=== PATIENT | male | born 1990 | race Caucasian/White ===

== ENCOUNTER 2024-07-29 10:29 | Outpatient (REF) | payer OTHER, SELFPAY ==
--- OUTSIDE RECORDS SUMMARY | 2024-07-29 10:32 | XMS_ITS | Encounter Summary ---
Author Organization [employer] Address [address] [facility] 7t [place] [address] Care Team Providers Care Black Leather Buffer Name Role Phone Abida Gonzalez MD Primary Care Provider + Reason for Visit * Reason Onset Date Comments ER Follow-up 05/26/2023 Encounter Details Date Type Department Care Team ([facility] st Contact Info) Description 05/26/2023 Telephone [facility] MEDICINE [address] [place], [place] [phone] Abida Gonzalez MD [address] [place], [place] [phone] ER Follow-up Social History Tobacco Use Types Packs/Day Years Used Date Smoking Tobacco: Never Smokeless Tobacco: Never Alcohol Use Standard Drinks/Week Comments Never 0 (1 standard drink = 0.6 oz pur e alcohol) Depression Answer Date Recorded Patient Health Questionnaire-9 Score 0 04/08/2023 Patient Health Questionnaire-9 Score 0 04/08/2023 Last PHQ-9: Questionnaire Data Not on file 1 Housing Stability Answer Date Recorded What is your housing situation today? I have jaswinder swift 04/08/[address] you li ve. Do you have problems with any of the following? None of the above 04/08/2023 Food Insecurity Answer Date Recorded Within the past 12 months, y ou worried that your food would run out before you got money to buy more: Never True 04/08/2023 Within the past 12 months,th e food you bought just didn't last and you didn't have enough money to get more: Never True Transportation Answer Date Recorded In the past 12 months, has l ack of transportation kept you from medical appts, meetings, work or from getting things needed for daily living? No 04/08/2023 Utilities Answer Date Recorded In the past 12 months, has t he electric, gas, oil or water company threatened to shut off services in your home? No 04/08/2023 Depression Answer Date Recorded Patient Health Questionnaire-2 Score 0 04/08/2023 Sex and Gender Information Value Date Recorded Sex Assigned at Male 04/22/2022 10:36 AM EDT Legal Sex Male 10:36 AM EDT Gender Identity Male 04/22/2022 10:36 AM EDT Sexual Orientation Straight 04/22/2022 10 :36 AM EDT documented as of this encounter Miscellaneous Notes * Telephone Encounter - Michell Santiago RN - 05/26/2023 9:06 AM EST Call to marc Booth seen at [facility] on Monday 05/21. Pt was having cough, chest congestion and ST. Per pt sx still persist. Per pt dx with viral URI. Pt was not given any medications. Perpt told to follow up with PCP. No fever. Per pt endorses wheezing with breathing. Per pt SOB on exertion. PT has productive cough with yellow sputum. Pt had negative COVID-19 testing. PT endorses nowhaving chest pain with cough. No fever in past 48 hours. Pt agrees to visit with green team provider for re-exam. Jackelin active per RUBIN. Sent to team nurses to request [facility] notes for provider review if available. Protocol Used: Cough (Adult) Protocol-Based Disposition: See in Office or Video Visit Today or Tomorrow Video visit offer not recorded Positive Triage Question: * Continuous (nonstop) coughing interferes with work or school and no improvement using cough treatment per Care Advice * All higher-acuity triage questions were negative Care Advice Discussed: * Reassurance and Education - Cough * Coughing Spells * Prevent Dehydration * Humidifier * Reasons To Call Back - Difficulty breathing - You become worse * Telephone Encounter - Daniel Zuniga - 05/26/2023 8:47 AM EST Patient spouse calling to report ED visit on 04/24/23 (date) at [facility] urgent care. Reports to be seen for fever, earache, chest congestion. States pt has chest pain. Patient advised will forward to triage nurse for follow up. Please contact at [phone] documented in this encounter Plan of Treatment Not on file documented as of this encounter Visit Diagnoses Not on filedocumented in this encounter Additional Health Concerns Assessment Noted Time PHQ-9 Depression Total Score: 0 04/08/20 9:36 AM EDT documented as of this encounter Care Teams Black Leather Buffer Relationship Specialty Start Date End Date Abida Gonzalez MD [address] [place] [id number] PCP - General Family Medicine 04/28/19 documented as of this encounter
--- OUTSIDE RECORDS SUMMARY | 2024-07-29 10:32 | XMS_ITS | Encounter Summary ---
Author Organization [employer] Address [address] [facility] 7t [place] [address] Care Team Providers Care Claim Attorney Name Role Phone Abida Gonzalez MD Primary Care Provider + Reason for Visit * Reason Comments Annual Exam Encounter Details Date Type Department Care Team ([facility] st Contact Info) Description 07/29/2024 9:45 AM EST Office Visit [facility] MEDICINE [address] [place], [place] [phone] Abida Gonzalez MD [address] [place], [place] [phone] Hypogonadism in male (Primary Dx); Encounter for preventive health examination; Elevated blood pressure reading in office with diagnosis of hypertension; Dietary counseling; Exercise counseling; Class 2 severe obesity due to excess calories with serious comorbidity and body mass index (BMI) of 39.0 to 39.9 in adult (CMS/HCC) Social History Tobacco Use Types Packs/Day Years Used Date Smoking Tobacco: Never Smokeless Tobacco: Never Alcohol Use Standard Drinks/Week Comments Yes 0 (1 standard drink = 0.6 oz pur e alcohol) oca Depression Answer Date Recorded Patient Health Questionnaire-9 Score 0 04/08/2023 Patient Health Questionnaire-9 Score 0 04/08/2023 Last PHQ-9: Questionnaire Data Not on file 1 Housing Stability Answer Date Recorded What is your housing situation today? I have jaswinder swift 07/29/[address] you li ve. Do you have problems with any of the following? None of the above 07/29/2024 Food Insecurity Answer Date Recorded Within the past 12 months, y ou worried that your food would run out before you got money to buy more: Never True 07/29/2024 Within the past 12 months,th e food you bought just didn't last and you didn't have enough money to get more: Never True 11/2024 Transportation Answer Date Recorded In the past 12 months, has l ack of transportation kept you from medical appts, meetings, work or from getting things needed for daily living? No 07/29/2024 Utilities Answer Date Recorded In the past 12 months, has t he electric, gas, oil or water company threatened to shut off services in your home? No 07/29/2024 Depression Answer Date Recorded Patient Health Questionnaire-2 Score 0 07/29/2024 Internet Access Answer Date Recorded Internet Access Q1 No 07/29/2024 Internet Access Q2 I do not want or need it 11/2024 Sex and Gender Information Value Date Recorded Sex Assigned at Male 04/22/2022 10:36 AM EDT Legal Sex Male 10:36 AM EDT Gender Identity Male 04/22/2022 10:36 AM EDT Sexual Orientation Straight 04/22/2022 10 :36 AM EDT documented as of this encounter Last Filed Vital Signs Vital Sign Reading Time Taken Comments Blood Pressure 161/99 07/29/2024 9:54 AM EST Pulse 73 07/29/2024 9:54 AM EST Temperature 36.7 ??C (98.1 ??F) 07/29/2024 9:54 AM ES T Respiratory Rate 16 07/29/2024 9:54 AM EST Oxygen Saturation 99% 07/29/2024 9:54 AM EST Inhaled Oxygen Concentration - - Weight 119 kg (262 lb) 07/29/2024 9:54 AM EST Height 172.7 cm (5' 8 ) 07/29/2024 9:54 AM EST Body Mass Index 39.84 07/29/2024 9:54 AM EST documented in this encounter Plan of Treatment Scheduled Orders Name Type Priority Associated Diagnoses Orde r Schedule T-SPOT??.TB Lab Routine Encounter for preventive health examination Expected: 07/29/2024 (Approximate), Expires: 07/29/2025 HIV-1/2 Antigen and Antibodies, Fourth Generation, with Reflexes Lab Routine Encounter for preventive health examination Expected: 07/29/2024 (Approximate), Expires: 07/29/2025 Hepatitis Panel, General Lab Routine Encounter for preventive health examination Expected: 07/29/2024 (Approximate), Expires: 07/29/2025 Lipid Panel with Reflex to Direct LDL Lab Routine Hypogonadism in male Expected: 07/29/2024 (Approximate), Expires: 07/29/2025 CBC auto differential Lab Routine Hypogonadism in male Expected: 07/29/2024 (Approximate), Expires: 07/29/2025 Comprehensive Metabolic Panel Lab Routine Hypogonadism in male Expected: 07/29/2024 (Approximate), Expires: 07/29/2025 Syphilis Screen Lab Routine Encounter for preventive health examination Expected: 07/29/2024 (Approximate), Expires: 07/29/2025 Chlamydia/N. Gonorrhoeae RNA, TMA, Urogenitial Microbiology Routine Encounter for preventive health examination Ordered: 07/29/2024 Testosterone, Free (Dialysis) And Total, MS Lab Routine Hypogonadism in male Expected: 07/29/2024 (Approximate), Expires: 07/29/2025 FSH Lab Routine Hypogonadism in male Expected: 07/29/2024, Expires: 07/29/2025 LH Lab Routine Hypogonadism in male Expected: 07/29/2024 (Approximate), Expires: 07/29/2025 documented as of this encounter Visit Diagnoses Diagnosis Hypogonadism in male- Primary Encounter for preventive health examination Elevated blood pressure reading in office with diagnosis of hypertension Dietary counseling Dietary surveillance and counseling Exercise counseling Class 2 severe obesity due to excess calories with serious comorbidity and body mass index (BMI) of 39.0 to 39.9 in adult (CMS/HCC) documented in this encounter Additional Health Concerns Assessment Noted Time PHQ-9 Depression Total Score: 0 04/08/20 23 9:36 AM EDT documented as of this encounter Care Teams Claim Attorney Relationship Specialty Start Date End Date Abida Gonzalez MD [address] [place] [id number] PCP - General Family Medicine 04/28/19 documented as of this encounter
--- OUTSIDE RECORDS SUMMARY | 2024-07-29 10:32 | XMS_ITS | Encounter Summary ---
Author Organization [employer] Address [address] [place] [address] Care Team Providers Care Outsole Rounder Name Role Phone Abida Gonzalez MD Primary Care Provider + [phone] Reason for Visit * Reason Comments Follow-up Discuss treatment op tions Encounter Details Date Type Department Care Team ([facility] st Contact Info) Description 07/08/2024 8:30 AM EST Office Visit Orthopedic Surgery [facility] [address] [phone] Rosa Wagoner MD [address] [facility] 160 [place] [address] Patellar tendon strain, left, sequela (Primary Dx) Social History Tobacco Use Types Packs/Day Years Used Date Smoking Tobacco: Never Alcohol Use Standard Drinks/Week Comments Yes 0 (1 standard drink = 0.6 oz pur e alcohol) Sex and Gender Information Value Date Recorded Sex Assigned at Not on file Gender Identity Not on file Sexual Orientation Not on file Job Start Date Occupation Industry Not on file Not on file Not on file documented as of this encounter Last Filed Vital Signs Vital Sign Reading Time Taken Comments Blood Pressure - - Pulse - - Temperature - - Respiratory Rate - - Oxygen Saturation - - Inhaled Oxygen Concentration - - Weight 119 kg (263 lb) 07/08/2024 8:27 AM EST Height 172.7 cm (5' 7.99 ) 07/08/2024 8:27 AM ES T Body Mass Index 40 07/08/2024 8:27 AM EST documented in this encounter Progress Notes * Rosa Wagoner MD - 07/08/2024 8:30 AM EST Daniel Cosme CC: Chief Complaint Patient presents with Follow-up Discuss treatment options HPI: Daniel is here to follow-up with his left knee pain secondary to patella tendinosis with partial thickness tear. We had heard from his Worker's [employer]. insurance that the PRP injection was going miguel approved but unfortunately they change their mind and they are not going to approve the PRP injection. Unfortunately Daniel has not improved with any other conservative treatment including extensive physical therapy. He states at this time he is not able to afford [id number] cost of PRP injection which is $500. He wonders if there are other treatment options for this condition. ROS: Constitutional: no fever Musculoskeletal: see HPI Skin: no rash Neurologic: negative for headache, dizziness The remainder of the systems is noncontributory PMH: Patient Active Problem List Diagnosis Date Noted BRBPR (bright red blood per rectum) 04/14/2024 Known medical problems 04/06/2024 Hypogonadism in male 04/08/2023 Elevated blood pressure reading in office with diagnosis of hypertension 04/08/2023 Class 2 obesity 11/06/2022 PSH: Past Surgical History: Procedure Laterality Date ROTATOR CUFF REPAIR PROCEDURE: HISTORICAL ROTATOR CUFF REPAIR; COMMENT: right side Medications: No current outpatient medications on file. Allergies: Allergies Allergen Reactions Other Seasonal allergies SHx: Social History Tobacco Use Smoking status: Never Smokeless tobacco: Not on file Substance Use Topics Alcohol use: Yes FHx: Family History Problem Relation Name Age of Onset Diabetes Maternal Grandfather Physical Exam: Visit Vitals Ht 1.727 m (67.99 ) Wt 119 kg (263 lb) BMI 40.00 kg/m?? Smoking Status Never BSA 2.29 m?? Gen: No acute distress. Pleasant Eyes: PERRL, EOMI ENT: Mucous membranes moist Resp:Normal respiratory effort Lymphatics: No noted lymphadenopathy MSK: Knee Exam: Left Inspection: No genu varus or valgus noted. No effusion. Normal gait. . Palpations: No joint line tenderness to palpation. Patella facets - pos tenderness to palpation. MCL: nl. LCL: nl. Distal ITB: nl. Patella tendon: Ttp at proximal attachment . Pes Anserine: tendons: nl, bursa: nl. Strength: 5/5. ROM-full. Varus stress at 20 degree and full extension - nl. Valgus stress at at 20 degree and fullextension - n Neurovascular: Intact with no focal deficit Radiographic/Imaging: MRI of the left knee was personally reviewed Medial, lateral meniscus are both intact. ACL, PCL, MCL and LCL complex are all intact. There is bone marrow edema at the inferior pole of the patella. The adjacent patella tendon appearsthickened and irregular with increased signal intensity. Limited bedside musculoskeletal ultrasound of the patella tendon was then performed. See ultrasoundreport for those results All images are stored and permanently retrievable Assessment: 1) Left patella tendinosis with partial thickness tear: Unfortunately he has not responded to several months of physical therapy for patellar tendinosis and partial-thickness tearing. I discussed corticosteroid injection is generally not recommended. This may help reduce his pain but it will not help heal his tendon tear or his tendinosis and does increase his risk of patella tendon rupture. I again discussed the best options for treatment as he has already exhausted other conservative treatments is a PRP injection versus consultation for surgical treatment. Plan: 1) at this time he is not able to afford [id number] cost of PRP injection and Worker's Comp. didnot approve the cost. 2) discussed referral to Dr. Marcelo Sanders to discuss possible surgical treatment for patella tendinosis and partial-thickness tear. 3) paperwork was filled out for his job at the [employer] recommending definitive treatment with PRP injection versus surgical evaluation. All of the patient's questions were answered. The patient understand and feels comfortable with thecurrent care plan. Thanks for allowing me to be a part of the patient's care team! Please feel free to contact me for any reason. Sincerely, Rosa Wagoner MD. ON 07/09/2024 at 1:22 PM EST documented in this encounter Plan of Treatment Upcoming Encounters Date Type Department Care Team (Late st Contact Info) Description 08/09/2024 9:00 AM EST Consult Orthopedic Surgery - [facility] [address] [facility] [address] [place] [phone] Marcelo Sanders MD 175 [facility] 160 [place] [address] documented as of this encounter Visit Diagnoses Diagnosis Patellar tendon strain, left, sequela- Primary documented in this encounter Care Teams Outsole Rounder Relationship Specialty Start Date End Date Abida Gonzalez MD 230 [facility] 1 [place] [phone] PCP - General Internal Medicine 05/24/24 documented as of this encounter
--- OUTSIDE RECORDS SUMMARY | 2024-07-29 10:32 | XMS_ITS | Clinical Summary ---
Author Organization [facility] [address] [place] [address] Address [address] [place] [address] Phone Care Team Providers Care Air And Water Filler Name Role Phone Abida Gonzalez MD Primary Care Provider + [phone] Allergies Active Allergy Reactions Criticality Noted Date Comments Other 12/11/2012 Seasonal allergies Medications No known medications Active Problems Problem Noted Date Diagnosed Date BRBPR (bright red blood per rectum) 04/14/2024 Known medical problems 04/06/2024 Overview (04/06/2024): NO ACTIVE MEDICAL PROBLEMS(aka [id number]) Hypogonadism in male 04/08/2023 Overview (07/08/2024): Dx and treated by Dr Khurram Canela ([place] and [place]), only telehealth Elevated blood pressure read ing in office with diagnosis of hypertension 04/08/2023 Class 2 obesity 11/06/2022 Resolved Problems Problem Noted Date Diagnosed Date Resolved Date Subareolar mass of right breast 11/06/2022 07/08/2024 Right upper quadrant pain 11/06/2022 Pleuritic pain 11/06/2022 07/08/2024 Injury of right foot 11/06/2022 025 Encounters Date Type Department Care Team Description 07/08/2024 8:30 AM EST Office Visit Orthopedic Surgery - [facility] 160 175 [facility] [address] [place] [address] Rosa Wagoner MD Patellar tendon strain, left, sequela (Primary Dx) 06/02/2024 Telephone Orthopedic Surgery [facility] [address] [phone] [place] 05/31/2024 3:40 PM EST Ancillary Procedure Orthopedic [facility] 160 175 [facility] 160 [place] [phone] Injury of left knee, subsequent encounter 05/31/2024 3:00 PM EST Office Visit Orthopedic Surgery [facility] [address] [phone] Rosa Wagoner MD Injury of left knee, subsequent encounter 05/07/2024 9:00 AM EST Office Visit [address] [phone] Miguel Ángel Diane PA Injury of left knee, subsequent encounter (Primary Dx) from Last 3 Months Immunizations Name Administration Dates Next Due Influenza Quadrivalent, 0.5m l, preservative free (Fluarix; FluLaval; Fluzone) ages 6mo and older (Afluria) 3yo and older 04/05/2020 Moderna SARS-CoV-2 COVID-19, mRNA, LNP-S, preservative free 06/06/2021 Td Tetanus diptheria (Tdvax) 7yo and older 04/08 Tdap Tetanus diptheria acell ular pertussis (Boostrix; Adacel) 7yo and older 02/17/2017,02/18/2013 Surgical History Surgery Date Site/Laterality Comments ROTATOR CUFF REPAIR PROCEDURE: HISTORICAL ROTATOR CUFF REPAIR; COMMENT: right side Medical History Medical History Date Comments Fracture, radius and ulna, shaft DX:Fracture, radius and ulna, shaft; COMMENT: 2007 Injury of right foot 11/06/2022 Subareolar mass of right breast 11/06/2022 Right upper quadrant pain 11/06/2022 Family History Medical History Relation Name Comments Diabetes Maternal Grandfather Relation Name Status Comments Brother Alive Father Alive Maternal Grandfather Mother Alive Social History Tobacco Use Types Packs/Day Years Used Date Smoking Tobacco: Never Tobacco Cessation:Counseling Given: Not Answered Alcohol Use Standard Drinks/Week Comments Yes 0 (1 standard drink = 0.6 oz pur e alcohol) Sex and Gender Information Value Date Recorded Sex Assigned at Not on file Gender Identity Not on file Sexual Orientation Not on file Job Start Date Occupation Industry Not on file Not on file Not on file Obstetrics History Last Filed Vital Signs Vital Sign Reading Time Taken Comments Blood Pressure 136/86 04/08/2024 3:16 PM EDT Pulse 70 04/08/2024 3:16 PM EDT Temperature - - Respiratory Rate - - Oxygen Saturation - - Inhaled Oxygen Concentration - - Weight 119 kg (263 lb) 07/08/2024 8:27 AM EST Height 172.7 cm (5' 7.99 ) 07/08/2024 8:27 AM ES T Body Mass Index 40 07/08/2024 8:27 AM EST Plan of Treatment Upcoming Encounters Date Type Department Care Team (Late st Contact Info) Description 08/09/2024 9:00 AM EST Consult Orthopedic Surgery - [facility] 160 175 [facility] [address] [place] [phone] Marcelo Sanders MD 175 [facility] 160 [place] [address] Health Maintenance Due Date Last Done Comments Hepatitis B Vaccines (1 of 3 - 19+ 3-dose series) 2009 COVID-19 Vaccine (3 - Modern a risk series) 08/10/2021 07/13/2021, 06/06/2021 Social Influencers of Health Screening 05/26/2022 Influenza Vaccine (#1) 2024 04/05/2020 Depression Screening 04/08/2024 04/08/2023 Hypertension/CHF/CAD Annual BMP Blood Test 05/07/2024 02/22/2014 Cholesterol Screening (Lipid Panel) 04/10/2025 04/10/2020, 02/22/2014 DTaP,Tdap,and Td Vaccines (4 - Td or Tdap) 04/08/2033 04/08/2023, 02/17/2017, 02/18/2013 Hepatitis C Screening Completed 02/18/2013 HIV Screening Completed 04/10/2020, 02/18/2013 HIB Vaccines Aged Out No longer eligi ble based on patient's age to complete this topic HPV Vaccines Aged Out No longer eligi ble based on patient's age to complete this topic Hepatitis A Vaccines Aged Out No long er eligible based on patient's age to complete this topic IPV Vaccines Aged Out No longer eligi ble based on patient's age to complete this topic MMR Vaccines Aged Out No longer eligi ble based on patient's age to complete this topic Meningococcal ACWY Vaccine Aged Out N o longer eligible based on patient's age to complete this topic Pneumococcal Vaccine: Pediatrics (0 to 5 Years) and At-Risk Patients (6 to 64 Years) Aged Out No longer eligible b ased on patient's age to complete this topic RSV Immunization Patients Under 20 months Aged Out No longer eligible b ased on patient's age to complete this topic Varicella Vaccines Aged Out No longer eligible based on patient's age to complete this topic Procedures Procedure Name Priority Date/Time Associated Diagnosis Comments US EXTREMITY NONVASCULAR LIMITED LEFT Routine 05/31/2024 3:36 PM EST Injury of left knee, subsequent encounter ANNUAL BMP BLOOD TEST Routine 02/22/2014 LIPID PANEL Routine 02/22/2014 HEPATITIS C SCREENING Routine 02/18/2013 HIV SCREENING Routine 02/18/2013 from Last 3 Months or Most Recently Relevant to Health Maintenance Results * US Extremity Nonvascular Limited Left (05/31/2024 3:36 PM EST) Anatomical Region Laterality Modality Extremity Left Ultrasound Narrative 05/31/2024 5:24 PM EST MSK Ultrasound Exam Anatomical site: Left knee Indication: Pain Technical: [employer] E ultrasound machine used a linear probe at a depth of 3 cm. Findings: The left anterior knee was imaged in short and long axis. At the proximal portion of the patella tendon at the lateral aspect there is thickening of the patella tendon and hypoechoic signal at the attachment point at the lateral portion of the patella. ??There is hyperechoic signal at the attachment point of the distal pole of the patella Impression: Patella tendinosis with partial thickness tearing at the lateral aspect of the tendon with underlying bony abnormality at the distal pole of the patella Images were taken and are permanently stored and retrievable in the patient's medical record Rosa Wagoner MD IMG US PROCEDURES * Annual BMP Blood Test (02/22/2014) Annual BMP Blood Test abstracted Historical Provider MD ALLEGRA GRECO E * Lipid panel (02/22/2014) Pathologist [facility] LDL/HDL Ratio 3 0 - 4 Triglycerides 95 0 - 150 mg/dL Cholesterol 153 0 - 200 mg/dL HDL 44 40 mg/dL LDL Cholesterol 90 0 - 100 mg/dL Blood Venous blood specimen / Unknown Historical Provider LAB BLOOD ORDERAB LES * HIV Screening (02/18/2013) Pathologist [facility] HIV Screening abstracted Historical Provider MD ALLEGRA GRECO * Hepatitis C Screening (02/18/2013) Pathologist [facility] Hepatitis C Screening abstracted Historical Provider MD ALLEGRA Clark from Last 3 Months or Most Recently Relevant to Health Maintenance Care Teams Air And Water Filler Relationship Specialty Start Date End Date Abida Gonzalez MD [address] [place] [phone] PCP - General Internal Medicine 05/24/24
--- OUTSIDE RECORDS SUMMARY | 2024-07-29 10:32 | XMS_ITS | Encounter Summary ---
Author Organization [employer] Address [address] [facility] [address] [place] [address] Care Team Providers Care Broomcorn Scraper Name Role Phone Abida Gonzalez MD Primary Care Provider + Encounter Details Date Type Department Care Team (Latest Contact Info) Description 07/29/2024 Travel Social History Tobacco Use Types Packs/Day Years [...] AM EDT documented as of this encounter Plan of Treatment Not on file documented as of this encounter Visit Diagnoses Not on filedocumented in this encounter Additional Health Concerns Assessment Noted Time PHQ-9 Depression Total Score: 0 04/08/20 23 9:36 AM EDT documented as of this encounter Care Teams Broomcorn Scraper Relationship Specialty Start Date End Date Abida Gonzalez MD [address] [place] [id number] PCP - General Family Medicine 04/28/19 documented as of this encounter
--- OUTSIDE RECORDS SUMMARY | 2024-07-29 10:32 | XMS_ITS | Clinical Summary ---
Author Organization [facility] Address [address] [place] [address] Care Team Providers Care Warehouse Handler Name Role Phone Unavailable Primary Care Provider Unavailabl e Allergies No known active allergies Medications Medication Sig Dispensed Refills Start Date End Date Status ibuprofen 200 MG tablet Take 200 mg by mouth every 6 (six) hours as needed for pain. 0 Active Social History Tobacco Use Types Packs/Day Years Used Date Smoking Tobacco: Never Assessed Sex and Gender Information Value Date Recorded Sex Assigned at Not on file Gender Identity Not on file Sexual Orientation Not on file Job Start Date Occupation Industry Not on file Not on file Not on file Last Filed Vital Signs Vital Sign Reading Time Taken Comments Blood Pressure - - Pulse - - Temperature - - Respiratory Rate - - Oxygen Saturation - - Inhaled Oxygen Concentration - - Weight 103.9 kg (229 lb) 06/07/2021 8:27 AM EST Height 172.7 cm (5' 8 ) 06/07/2021 8:27 AM EST Body Mass Index 34.82 06/07/2021 8:27 AM EST Plan of Treatment Health Maintenance Due Date Last Done Comments Hepatitis B Vaccines (1 of 3 - 3-dose series) 1990 Hepatitis C Screening 1990 COVID-19 Vaccine (#1) 05/12/1991 Depression Screening 2002 BMI Counseling 2008 Preventative Health Evaluation 2008 DTap / Tdap / Td (1 - Tdap) 2009 Influenza Vaccine (#1) 2024 Pneumococcal Vaccine Aged Out No long er eligible based on patient's age to complete this topic RSV Ped < 20 months Aged Out No longe r eligible based on patient's age to complete this topic [employer] Corporate Other [address] [id number] Daniel Cosme Personal/Family Self 1990 [address] [place] [address]
--- OUTSIDE RECORDS SUMMARY | 2024-07-29 10:32 | XMS_ITS | Encounter Summary ---
Author Organization [employer] Address [address] [facility] [address] [place] [address] Care Team Providers Care Landscape Architecture Teacher Name Role Phone Abida Gonzalez MD Primary Care Provider + Reason for Visit * Reason Onset Date Comments Chart prep 07/28/2024 Encounter Details Date Type Department Care Team ([facility] st Contact Info) Description 07/28/2024 Telephone [facility] MEDICINE [address] [place], [place] [phone] Abida Gonzalez MD [address] [place], [place] [phone] Chart prep Social History Tobacco Use Types Packs/Day Years [...] your housing situation today? I have jaswinder jamison 07/29/[address] you li [...] encounter Miscellaneous Notes * Telephone Encounter - Gilda Benitez MA - 07/28/2024 11:00 AM EST Chart Prep Labs: not done Images: done Vaccines due: yes Referrals: complete Screenings: Up to date Overdue care gaps: SDOH, PHQ-9 documented in this encounter Plan of Treatment Not on file documented as of this encounter Visit Diagnoses Not on filedocumented in this encounter Additional Health Concerns Assessment Noted Time PHQ-9 Depression Total Score: 0 04/08/20 23 9:36 AM EDT documented as of this encounter Care Teams Landscape Architecture Teacher Relationship Specialty Start Date End Date Abida Gonzalez MD [address] [place] [address] PCP - General Family Medicine 04/28/19 documented as of this encounter
--- OUTSIDE RECORDS SUMMARY | 2024-07-29 10:32 | XMS_ITS | Encounter Summary ---
Author Organization [employer] Address [address] [facility] 7t [place] [address] Care Team Providers Care Tube Bender Hand Name Role Phone Abida Gonzalez MD Primary Care Provider + Reason for Visit * Reason Comments Pre-visit Planning (Unable to reach for PVP screening, LVM) Encounter Details Date Type Department Care Team ([facility] Contact Info) Description 07/19/2024 Patient Outreach [facility] MEDICINE [address] [place], [place] [phone] Abida Gonzaelz MD [address] [place], [place] [phone] Pre-visit Planning ((Unable to reach for PVP screening, LVM)) Social History Tobacco Use Types Packs/Day Years [...] AM EDT documented as of this encounter Progress Notes * Rachelle Kim - 07/19/2024 10:30 AM EST WILLIAM Bush. Placed outbound call to patient to complete pre-visit planning. No answer at this time. Patient name and were not confirmed. CC left voicemail requesting return call. Direct contact information provided. documented in this encounter Plan of Treatment Not on file documented as of this encounter Visit Diagnoses Not on filedocumented in this encounter Additional Health Concerns Assessment Noted Time PHQ-9 Depression Total Score: 0 04/08/20 23 9:36 AM EDT documented as of this encounter Care Teams Tube Bender Hand Relationship Specialty Start Date End Date Abida Gonzalez MD [address] [place] [address] PCP - General Family Medicine 04/28/19 documented as of this encounter
--- OUTSIDE RECORDS SUMMARY | 2024-07-29 10:32 | XMS_ITS | Encounter Summary ---
Author Organization [employer] Address [address] [place] [address] Care Team Providers Care Smoke Jumper Supervisor Name Role Phone Abida Gonzalez MD Primary Care Provider + [phone] Encounter Details Date Type Department Care Team ([facility] st Contact Info) Description 06/02/2024 Telephone Orthopedic Surgery [facility] [address] [facility] [address] [place] [phone] Mervat Perez MA Social History Tobacco Use Types Packs/Day Years [...] on file documented as of this encounter Progress Notes * Mervat Perez MA - 07/05/2024 8:27 AM EST Patient was informed, appt scheduled for 07/08/24 at 8;30am. * Rosa Wagoner MD - 07/02/2024 3:38 PM EST I would recommend he schedule a followup apt to discuss options * Mervat Perez MA - 07/02/2024 2:38 PM EST I called Daniel and he stated that at this time he is not able to afford to pay out of pocket and heknows that will not pay or reimburse him. Wondering if he can do the cortisone injection you recommended. * Rosa Wagoner MD - 07/01/2024 8:09 AM EST I would recommend if he can afford to pay the $500 out of pocket and then work with his workers comp high speed warper tender to get reimbursed that would be the best option. * Mervat Perez MA - 06/30/2024 9:56 AM EST Patient called back today and stated that he reached out to his HR dept and they will not be covering PRP injection. Is there something else that you would recommend? * Mervat Perez MA - 06/29/2024 9:43 AM EST I called patient to find out if he could reach out to his workers comp case planner as we have not received letter stating fee coverage. He stated that he will reach out to his HR dept. * Mervat Perez MA - 06/09/2024 1:11 PM EST L/m again for Mary re: payment letter. L/m for pt to call office. Pt returned my phone call, informed that PRP has been approved and right now we are waiting on payment letter from Mary. * Mervat Perez MA - 06/04/2024 2:41 PM EST Correspondence received stating that PRP injection has been approved. Dr. Wagoner was informed of approval. Message left for Mary that the office will need a letter stating that Future comp will be responsible for payment. This letter will be needed before appt is scheduled. Fee: $500.00 I did call Mary back and left fee information on her voice mail. * Mervat Perez MA - 06/03/2024 2:52 PM EST Request faxed to Mary. * Mansi Hanson - 06/03/2024 1:02 PM EST Mary called back and said to fax the PA request and she would take a look * Mervat Perez MA - 06/02/2024 3:05 PM EST L/m on Mary's voice mail to call me back. * Mervat Perez MA - 06/02/2024 9:56 AM EST Patient called me back and provided information Case managing case: Mary Martínez Claim# [id number] Future comp. * Mervat Perez MA - 06/02/2024 9:48 AM EST Left message to call office. I will need workers comp personal service representative name, phone and fax #s and workers comp account number to start PA process for PRP injection. documented in this encounter Plan of Treatment Upcoming Encounters Date Type Department Care Team (Late st Contact Info) Description 08/09/2024 9:00 AM EST Consult Orthopedic Surgery - [place] [address] [facility] [address] [place] [phone] Marcelo Sanders MD 175 [facility] [address] [place] [address] documented as of this encounter Visit Diagnoses Not on filedocumented in this encounter Care Teams Smoke Jumper Supervisor Relationship Specialty Start Date End Date Abida Gonzalez MD 230 [facility] 1 [place] [address] PCP - General Internal Medicine 05/24/24 documented as of this encounter
--- OUTSIDE RECORDS SUMMARY | 2024-07-29 10:32 | XMS_ITS | Clinical Summary ---
Author Organization [employer] Address [address] [facility] 7[address] [place] [address] Care Team Providers Care Lozenge Dough Mixer Name Role Phone Abida Gonzalez MD Primary Care Provider + Allergies No known active allergies Medications sucralfate (Carafate) 1 g tablet TAKE 1 TABLET (ORAL) 4 TIMES PER DAY FOR 14 DAYS 02/23/20 23 Active loratadine (Claritin) 10 MG tablet Take 1 tablet (10 mg) by mouth in the morning. 30 tablet 2 05/26/20 23 Active Blood Pressure Monitoring (Blood Pressure Kit) kit 1Use as directed 3x/week 1 kit 07/29/19 25 Active tretinoin (Retin-A) 0.025 % cream APPLY TO FACE EVERY OTHER NIGHT AND INCREASE TO NIGHTLY TOLERATED 01/15/20 23 025 Discontinued(Th erapy completed) minocycline 100 MG capsule PLEASE SEE ATTACHED FOR DETAILED DIRECTIONS 01/15/20 23 025 Discontinued(Th erapy completed) Blood Pressure Monitor kit Use as directed 3x/week 1 kit 04/08/20 23 025 Discontinued(Re order (will not trigger notification to Pharmacy)) Blood Pressure Monitoring (Blood Pressure Kit) kit 1Use as directed 3x/week 1 kit 07/29/19 25 025 Discontinued(Re order (will not trigger notification to Pharmacy)) Active Problems Problem Noted Date Diagnosed Date Hypogonadism in male 04/08/2023 Overview (04/08/2023): Dx and treated by Dr Khurram Canela ([place]), only telehealth Assessment & Plan (04/08/2023 1:02 PM EDT): Unclear Dx, will obtain records from who is a neuro surgeon based out of [place] Check testosterone levels Elevated blood pressure read ing in office with diagnosis of hypertension 04/08/2023 Assessment & Plan (04/08/2023 1:03 PM EDT): Controlled. Compliant w/meds Counseled re low salt diet/increase moderate physical activity. Check home BP 2-3 x wk and prn CP/DOE/MOREIRA Non smoking patient. Check labs, unclear if related to testosterone injections Family history of colon cancer 03/03/2023 Encounter for preventive health examination 10/21 Assessment & Plan (04/08/2023 1:04 PM EDT): Discussed with patient re increase fresh fruit and vegetable intake. Counseled re moderate exercise as tolerated, up to 20min/d Patient feels safe at home. 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 Refer to Urology and scheduled him a PE with me at next available appointment. Injury of right foot 11/06/2022 Subareolar mass of right breast 11/06/2022 Right upper quadrant pain 11/06/2022 Obesity (BMI 30-39.9) 11/06/2022 Pleuritic pain 11/06/2022 Encounters Date Type Department Care Team Description 07/29/2024 9:45 AM EST Office Visit [facility] [address] [place] [address] Abida Gonzalez MD Hypogonadism in male (Primary Dx); Encounter for preventive health examination; Elevated blood pressure reading in office with diagnosis of hypertension; Dietary counseling; Exercise counseling; Class 2 severe obesity due to excess calories with serious comorbidity and body mass index (BMI) of 39.0 to 39.9 in adult ([facility]) 07/29/2024 Travel 07/28/2024 Telephone [facility] MEDICINE [address] [place] [address] Abida Gonzalez MD Chart prep 07/19/2024 Patient Outreach [address] [phone] Abida Gonzalez MD Pre-visit Planning ((Unable to reach for PVP screening, LVM)) 06/18/[address] [phone] Abida Gonzalez MD Call Back Request 05/10/[address] [phone] Abida Gonzalez MD June recall from Last 3 Months Immunizations Name Administration Dates Next Due Influenza injectable quadrivalent preservative f ree 04/05/2020 TD (adult), 2 Lf tetanus tox oid, preservative free, adsorbed 04/08/2023 Family History Medical History Relation Name Comments Cancer Maternal Grandfather prostat e or colon ca, pt clarifying Colon cancer Maternal Grandmother Cancer Mother possible colon ca, pt clarifying w/ mom Cervical cancer Other maternal gre at aunt Relation Name Status Comments Maternal Grandfather Maternal Grandmother Mother Other Social History Tobacco Use Types Packs/Day Years [...] Orientation Straight 04/22/2022 10 :36 AM EDT Last Filed Vital Signs Vital Sign Reading [...] Mass Index 39.84 07/29/2024 9:54 AM EST Plan of Treatment Health Maintenance Due Date Last Done Comments Alcohol/Substance Use Screening 2002 Family Planning (PISQ) 2005 Hepatitis B Vaccines (1 of - 19+ 3-dose series) 2009 COVID-19 Vaccine (2023-2 5 season) 2024 07/13/2021, 06/06/2021 Influenza Vaccine (#1) 2024 04/05/2020 Lipid Panel 04/10/2025 04/10/2020 Depression Screening 07/29/2025 07/29/2024, 04/08/2023 SDOH Screening 07/29/2025 07/29/2024 Tobacco Screening 07/29/2025 07/29/2024 DTaP/Tdap/Td Vaccines (4 - T d or Tdap) 04/08/2033 04/08/2023, 02/17/2017, 02/18/2013 Zoster Vaccines (1 of 2) 2040 RSV Patients and Patients Aged 60 years or older (1 - 1-dose 75+ series) 2065 HIV Screening Completed 04/10/2020 Hepatitis C Screening Completed 04/10/2020 HIB Vaccines Aged Out No longer eligi [...] patient's age to complete this topic Meningococcal Vaccine Aged Out No malik edelmira eligible based on patient's age to complete this topic Pneumococcal Vaccine: Pediatrics (0 to 5 Years) and At-Risk Patients (6 to 49) Years) Aged Out No longer eligible b ased on patient's age to complete this topic RSV under 20 months Aged Out No longe r eligible based on patient's age to complete this topic Rotavirus Vaccines Aged Out No longer eligible based on patient's age to complete this topic Procedures Procedure Name Priority Date/Time Associated Diagnosis Comments ZZZ HISTORICAL HEPATITIS C AB W/REFL TO HCV RNA, QN, PCR Routine 04/10/2020 4:06 PM EDT HIV 1/2 ANTIGEN/ANTIBODY, FOURTH GENERATION W/RFL Routine 04/10/2020 4:06 PM EDT LIPID PANEL, STANDARD Routine 04/10/2020 4:06 PM EDT from Last 3 Months or Most Recently Relevant to Health Maintenance Results * HEPATITIS C AB W/REFL TO HCV RNA, QN, PCR (04/10/2020 4:06 PM EDT) HEPATITIS C ANTIBODY NON-REACT MIRANDA NON-REACT MIRANDA [facility] INDEX 0.02 <1.00 [facility] Comment: ?? HCV antibody was non-reactive. There is no laboratory ?? evidence of HCV infection. ?? In most cases, no further action is required. However, if recent HCV exposure is suspected, a test for HCV RNA (test code 87741) is suggested. ?? For additional information please refer to http://Qyuki/faq/DPX59a0 (This link is being provided for informational/ educational purposes only.) ?? HEPATITIS C ANTIBODY NON-REACT MIRANDA NON-REACT MIRANDA [facility] INDEX 0.02 <1.00 [facility] Comment: ?? HCV antibody was non-reactive. There is no laboratory ?? evidence of HCV infection. ?? In most cases, no further action is required. However, if recent HCV exposure is suspected, a test for HCV RNA (test code 75657) is suggested. ?? For additional information please refer to http://Qyuki/faq/SCK67t6 (This link is being provided for informational/ educational purposes only.) ?? HEPATITIS C ANTIBODY NON-REACT MIRANDA NON-REACT MIRANDA [facility] INDEX 0.02 <1.00 [facility] Comment: ?? HCV antibody was non-reactive. There is no laboratory ?? evidence of HCV infection. ?? In most cases, no further action is required. However, if recent HCV exposure is suspected, a test for HCV RNA (test code 68622) is suggested. ?? For additional information please refer to http://Qyuki/faq/QDD99t3 (This link is being provided for informational/ educational purposes only.) ?? 04/10/2020 4:06 PM EDT Abida Gonzalez MD HISTORICAL/NON ORDERABLE LABS Final Result [facility] [address] * HIV 1/2 ANTIGEN/ANTIBODY,FOURTH GENERATION W/RFL (04/10/2020 4:06 PM EDT) HIV-1/2 ANTIGEN AND ANTIBODIES, 4TH GENERATION W/ REFLEX NON-REACT MIRANDA NON-REACT MIRANDA [facility] Comment: HIV-1 antigen and HIV-1/HIV-2 antibodies were not detected. There is no laboratory evidence of HIV infection. ?? PLEASE NOTE: This information has been disclosed to you from records whose confidentiality may be protected by state law. ??If your state requires such protection, then the state law prohibits you from making any further disclosure of the information without the specific written consent of the person to whom it pertains, or as otherwise permitted by law. A general authorization for the release of medical or other information is NOT sufficient for this purpose. ? For additional information please refer to http://[employer]darTech[employer]/faq/FWU131 (This link is being provided for informational/ educational purposes only.) ? The performance of this assay has not been clinically validated in patients less than 2 years old. ?? HIV-1/2 ANTIGEN AND ANTIBODIES, 4TH GENERATION W/ REFLEX NON-REACT MIRANDA NON-REACT M[facility] Comment: HIV-1 antigen and HIV-1/HIV-2 antibodies were not detected. There is no laboratory evidence of HIV infection. ?? PLEASE NOTE: This information has been disclosed to you from records whose confidentiality may be protected by state law. ??If your state requires such protection, then the state law prohibits you from making any further disclosure of the information without the specific written consent of the person to whom it pertains, or as otherwise permitted by law. A general authorization for the release of medical or other information is NOT sufficient for this purpose. ? For additional information please refer to http://[employer]/faq/TAB743 (This link is being provided for informational/ educational purposes only.) ? The performance of this assay has not been clinically validated in patients less than 2 years old. ?? HIV-1/2 ANTIGEN AND ANTIBODIES, 4TH GENERATION W/ REFLEX NON-REACT MIRANDA NON-REACT [facility] Comment: HIV-1 antigen and HIV-1/HIV-2 antibodies were not detected. There is no laboratory evidence of HIV infection. ?? PLEASE NOTE: This information has been disclosed to you from records whose confidentiality may be protected by state law. ??If your state requires such protection, then the state law prohibits you from making any further disclosure of the information without the specific written consent of the person to whom it pertains, or as otherwise permitted by law. A general authorization for the release of medical or other information is NOT sufficient for this purpose. ? For additional information please refer to http://[employer]/faq/JJW404 (This link is being provided for informational/ educational purposes only.) ? The performance of this assay has not been clinically validated in patients less than 2 years old. ?? 04/10/2020 4:06 PM EDT us Abida Gonzalez MD LAB BLOOD ORDERABLES Fin al Result [facility] [address] * LIPID PANEL, STANDARD (04/10/2020 4:06 PM EDT) HDL Cholesterol 51 > OR = 40 mg/dL [facility] HDL Cholesterol 51 > OR = 40 mg/dL [facility] Triglycerides 79 <150 mg/dL [facility] LDL Cholesterol 97 mg/dL (calc) [facility] Comment: Reference range: <100 ?? Desirable range <100 mg/dL for primary prevention; ?? <70 mg/dL for patients with CHD or diabetic patients ?? with > or = 2 CHD risk factors. ?? LDL-C is now calculated using the Derek ?? calculation, which is a validated novel method providing ?? better accuracy than the Friedewald equation in the ?? estimation of LDL-C. ?? Shakeel JERONIMO et al. BEKA. 2013;310(19): 1573-7792 ?? (http://[employer]Tech.CmyCasa.[place]a/faq/ENF692) Chol/HDLC Ratio 3.2 <5.0 (calc) [facility] Triglycerides 79 <150 mg/dL [facility] Non-HDL Cholesterol 114 <130 mg/dL (calc) [facility] Comment: For patients with diabetes plus 1 major ASCVD risk ?? factor, treating to a non-HDL-C goal of <100 mg/dL ?? (LDL-C of <70 mg/dL) is considered a therapeutic ?? option. LDL Cholesterol 97 mg/dL (calc) [facility] Comment: Reference range: <100 ?? Desirable range <100 mg/dL for primary prevention; ?? <70 mg/dL for patients with CHD or diabetic patients ?? with > or = 2 CHD risk factors. ?? LDL-C is now calculated using the Derek ?? calculation, which is a validated novel method providing ?? better accuracy than the Friedewald equation in the ?? estimation of LDL-C. ?? Shakeel JERONIMO et al. BEKA. 2013;310(19): 0471-4173 ?? (http://LeddarTech.DCWafers/faq/NKZ981) Chol/HDLC Ratio 3.2 <5.0 (calc) [facility] Non-HDL Cholesterol 114 <130 mg/dL (calc) [facility] Comment: For patients with diabetes plus 1 major ASCVD risk ?? factor, treating to a non-HDL-C goal of <100 mg/dL ?? (LDL-C of <70 mg/dL) is considered a therapeutic ?? option. Cholesterol, Total 165 <200 mg/dL [facility] Cholesterol, Total 165 <200 mg/dL [facility] 04/10/2020 4:06 PM EDT us Abida Gonzalez MD LAB BLOOD ORDERABLES Fin al Result [facility] [address] from Last 3 Months or Most Recently Relevant to Health Maintenance [place] [address] [place] [address] Care Teams Lozenge Dough Mixer Relationship Specialty Start Date End Date Abida Gonzalez MD [address] [place] [id number] PCP - General Family Medicine 04/28/19
[2024-07-29 11:17] LABS: MANUAL DIFF FLAG NO
[2024-07-29 11:21] LABS: Basophils Absolute Auto 0.1 X10*3/uL (0.0-0.2); Basophils Percent Auto 1.1 % (0-2); Eosinophils Absolute Auto 0.3 X10*3/uL (0.0-0.4); Eosinophils Percent Auto 5.3 % (0-4); Hematocrit 44.6 % (42.0-52.0); Imm Gran Abs Auto 0.02 X10*3/uL (0.00-0.03); Imm Gran Pct Auto 0.3 % (0.0-0.4); Lymphocytes Absolute Auto 2.1 X10*3/uL (1.2-4.9); Lymphocytes Percent Auto 32.5 % (20-40); Mean Corpuscular HGB Conc 33.6 g/dl (31.0-36.0); Mean Corpuscular Volume 86.1 fL (80.0-98.0); Monocytes Absolute Auto 0.4 X10*3/uL (0.1-1.2); Monocytes Percent Auto 6.4 % (2-11); Neutrophils Absolute Auto 3.5 x10*3/uL (2.0-8.3); Neutrophils Percent Auto 54.4 % (45-73); Platelet Count 250 X10*3/uL (160-400); Red Blood Count 5.18 X10*6/uL (4.60-5.80); Red Cell Distribution Width 13.2 % (11.0-16.0); White Blood Count 6.4 X10*3/uL (4.8-10.8)
[2024-07-29 11:42] LABS: Alanine Aminotransferase 27 U/L (0-40); Albumin Level 4.1 g/dL (3.5-5.0); Alkaline Phosphatase 95 U/L (39-117); Anion Gap 10 (12-20); Aspartate Amino Transferase 20 U/L (5-37); Bilirubin Total 0.8 mg/dL (0.0-1.0); Blood Urea Nitrogen 20 mg/dL (9-16); Calcium 9.6 mg/dL (8.4-10.2); Carbon Dioxide 22 mmol/L (22-29); Chloride 109 mmol/L (96-108); Cholesterol 185 mg/dL (<200); Estimated Glomerular Filt Rate > 60; Glucose Random 105 mg/dL (60-115); HDL Cholesterol 44 mg/dL (>40); LDL Cholesterol Calculated 123 mg/dL (<100); Potassium 3.9 mmol/L (3.3-5.1); Sodium 137 mmol/L (135-145); Total Protein 8.5 g/dL (6.5-8.0); Triglycerides 91 mg/dL (<150)
[2024-07-29 11:44] LABS: Reflex LDLD? No
[2024-07-29 11:50] LABS: Syphilis Screen Nonreactive (Nonreactive)
[2024-07-29 11:59] LABS: HBS Num1 11.06 mIU/mL (0-7.99); HBc Num1 0.16 S/CO (0.00-0.79); HBsAGNum1 0.33 S/CO (0.00-0.99); HIV AB/AG Nonreactive (Nonreactive); HIV Num 1 0.06 S/CO (0.00-0.99); Hepatitis A Antibody IgM 0.13 Index (0-0.79); Hepatitis B Core Antibody Nonreactive (Nonreactive); Hepatitis B Surface Antigen Negative (Negative); ~HepC Num1 0.23 S/CO (0.00-0.79); ~Hepatitis A Antibody IgM Nonreactive (Nonreactive); ~Hepatitis C Antibody Nonreactive (Nonreactive)
[2024-07-29 12:50] LABS: HBS Num2 11.15 mIU/mL (0-7.99); ~Hepatitis B Surface Antibody GRAYZONE (Nonreactive)
[2024-07-30 20:14] LABS: Follicle Stimulating Hormone 3.8 mIU/mL (1.4-12.8); Lutenizing Hormone 1.9 mIU/mL (1.5-9.3)
[2024-07-31 22:08] LABS: TS Negative Control Passed; TS Panel A 3; TS Panel B 0; TS Positive Control Passed; TSpotTB Negative (Negative)
[2024-08-06 13:37] LABS: Testosterone, Free 34.2 pg/mL (35.0-155.0); Testosterone, Total 189 ng/dL (250-1100)
== END 2024-07-29 10:30 | disposition home or self-care (01) ==
LOC: HO.HHCL 10:29
PROVIDERS: Visit Provider Internal Medicine
DX: Z00.00 Encounter for general adult medical examination without abnormal findings (principal); E29.1 Testicular hypofunction; Z11.1 Encounter for screening for respiratory tuberculosis; Z11.59 Encounter for screening for other viral diseases
CPT/HCPCS: 36415; 80053; 80061; 83001; 83002; 84402; 84403; 85025; 86481; 86704; 86706; 86709; 86780; 86803; 87340; 87389

== ENCOUNTER 2024-09-07 09:50 | Outpatient (AMB) | payer OTHER, SELFPAY ==
--- NOTE | 2024-09-07 09:55 | A.OFFVIS_ITS ---
Vital Signs 09/07/24 09:58 Height 5 ft 8 in Weight 270 lb 8.115 oz BMI 41.1 BP 124/84 Blood Pressure Location Rt brachial Position Sitting Pulse 77 Pulse Source Pulse Oximeter Pulse Oximetry (%) 97 Oxygen Delivery Method Room Air Intake Visit Reasons: Hypogonadism Intake Note: New patient externally referred by PCP for Hypogonadism. Media Technician Required: No Accompanied by: Self / Same As Patient Allergies No Known Allergies Allergy (Verified 09/07/24 09:58) Medication List - Last Reconciled 09/07/24 by Price Chaney MD No Known Home Meds HPI Comments Details: 33 YO Male with who is seen in consultation at the request of his PCP for Hypogonadism. First diagnosed with Hypogonadism in 2021 with labs revealing low T. Saw online help. Took 100 mg once a wk.[place] better . Previously diagnosed in 2021, he reported fatigue, potentially exacerbated by night shifts. Initial treatment via [facility] consisted of weekly testosterone injections, 100 mg, resulting in symptom improvement. Cost led to therapy cessation approximately one year ago. Since stopping treatment, there has been weight gain, and a decrease in libido. He denies erectile dysfunction and testicular changes, and overall maintains intact sexual function. He experiences snoring but has not pursued sleep apnea evaluation. Was started on Testosterone supplementation with as above and found relief. Not Currently using testosterone. Last dose was last yr . achieving spontaneous am erections, and unable to achieve erection when desired. Reports low libido. Decreased facial hair and shaving frequency. Denies any change in size or shape of testicles. Denies penile discharge or scrotal tenderness. Denies any history of mumps orchitis. Denies any head trauma. Admits to snoring Denies history of ANAID. with children 4 children who were conceived spontaneously. Not looking to father children Sense of smell intact. Denies headache or visual changes, gynecomastia or galactorrhea. Denies orthostatic symptoms, weight loss. Denies change in size of hands or feet. Denies hair loss, weight gain, cold intolerance. History of DVT or PE: No use of anabolic steroids or heroin or opoids Labs: T=189 freeT =39.2 FSH =3.8 , LH =1.9 PSA CBC [facility] Medical History (Updated 09/07/24 @ 10:05 by Price Chaney MD) Hypogonadotropic hypogonadism Surgical History Hx of shoulder surgery Hx of vasectomy Family History Mother History of partial hysterectomy Social History Alcohol intake: current Alcohol intake frequency: holidays/special occasions only Patient Tobacco Use Status: Never used Tobacco Physical Exam Vital Signs: BMI result Body Mass Index 41.1 There is the absence of eunichoidal proportions. Neck exam reveals nl thyroid about 15 gms. Chest exam reveals absence of gynecomastia. Lungs CTA. Heart is S1 S2 Reg R/R. -M/R/G. Abdominal exam is benign. Muscle strength is 5/5 proximally. Examination of genitalia reveals nl size pthalus . Testes are of nl size and consistency. There is Dino Stage V Hair development Assessment & Plan Assessment & Plan (1) Hypogonadotropic hypogonadism: Code(s): E23.0 - Hypopituitarism Category: Medical Plan: Is a 33-year-old male with a history of hypogonadism with inappropriately low gonadotropins suggesting secondary hypogonadism. 1. Hypogonadism: Further evaluation for cause is warranted given low FSH and LH levels indicating possible central origins. Additional testing including prolactin and ferritin, and a pituitary MRI is planned. Options for testosterone replacement to be discussed include injections, gels, or new oral forms, targeting patient's circumstances, costs, and response. 2. Snoring/Possible Sleep Apnea: Discuss referral for sleep apnea workup due to significant snoring which may affect treatment. Proposed a sleep study via primary provider to assess apnea and ensure safe androgen therapy administration. The patient had an opportunity to ask questions regarding treatment plan. The patient expressed understanding and agreement with the above treatment plan. T Patient was informed and verbally consented to the use of an ambient scribe for clinic note documentation during this visit. During this visit, I explained to the patient the importance of thoroughly evaluating his hypogonadism, its possible central etiology, and the appropriate diagnostic pathway, including hormonal studies and pituitary imaging. The risks of unaddressed causes and improper management were discussed, emphasizing that central causes require specific treatment strategies and potentially overlooked symptoms can indicate serious conditions. We delved into the implications of untreated sleep apnea on testosterone therapy, which necessitates a preliminary evaluation and potential in-depth studies if apnea is present. The patient was counseled on the various testosterone delivery methods, tailored to his personal and family dynamics and cost considerations. I highlighted the need for informed decision-making about therapy in the context of precise and complete diagnosis. - Schedule and complete fasting morning blood work including testosterone, prolactin, and ferritin. - Follow up with MRI of the pituitary gland as scheduled. - Contact your primary care provider to arrange a sleep study assessment for potential sleep apnea. - Monitor for any new symptoms or escalate any current symptoms, especially if they change in character or severity. - Return for follow-up at the next scheduled appointment to review test results and establish a definitive treatment plan. Orders: Orders Testosterone, Free/Total Today E23.0 - Hypopituitarism Ferritin Today E23.0 - Hypopituitarism Thyroid Stimulating Hormone Today E23.0 - Hypopituitarism Free T4 (Free Thyroxine) Today E23.0 - Hypopituitarism Prolactin Today E23.0 - Hypopituitarism MR head/brain wo/w con Today E23.0 - Hypopituitarism Coding Level of Care Code New Pt Level 4 (37947) Diagnoses Hypogonadotropic hypogonadism E23.0
[2024-09-07 09:58] VITALS: BP 124/84; PULSE 77; O2SAT 97; BMI 41.1
--- OUTSIDE RECORDS SUMMARY | 2024-09-07 10:58 | XMS_ITS | Clinical Summary ---
Author Organization [employer] Address [address] [facility] [address] [place] [address] Care Team Providers Care Health Informatics Specialist Name Role Phone Abida Gonzalez MD Primary Care Provider + Allergies No known active allergies Medications sucralfate (Carafate) 1 g tablet TAKE 1 TABLET (ORAL) 4 TIMES PER DAY FOR 14 DAYS 02/22/2023 Active loratadine (Claritin) 10 MG tablet Take 1 tablet (10 mg) by mouth in the morning. 30 tablet 2 05/26/2023 Active Blood Pressure Monitoring (Blood Pressure Kit) kit 1Use as directed 3x/week 1 kit 07/29/2024 Active Active Problems Problem Noted Date Diagnosed Date Class 2 severe obesity due t o excess calories with serious comorbidity and body mass index (BMI) of 39.0 to 39.9 in adult 07/29/2024 Assessment & Plan (07/29/2024 11:05 AM EST): Discussed re weight reduction options including exercise, life style modifications, diet. Recommended to decrease soda and sugary beverage consumption, increase protein intake with meals (at least 1 portion of protein with each meal) to assist with satiety, increase dietary fiber Recommended at least 150 min/week of moderate intensity exercise. Refer to hand stripper, will consider medications. Screening and evaluation for vasectomy Assessment & Plan (07/29/2024 2:37 PM EST): Patient never had vasectomy that he was referred to few years ago as he couldn't afford copayment. He will bring me information re specialist he would like to be referred to. Hypogonadism in male 04/08/2023 Overview (04/08/2023): Dx and treated by Dr Khurram Canela ([place] and [place]), only telehealth Assessment & Plan (07/29/2024 11:02 AM EST): Pt has been off Testosterone for more than a year, needs to check Testosterone and FSH levels. Will FU at next appointment. Assessment & Plan (04/08/2023 1:02 PM EDT): Unclear Dx, will obtain records from who is a neuro surgeon based out of [place] Check testosterone levels Elevated blood pressure read ing in office with diagnosis of hypertension 04/08/2023 Assessment & Plan (07/29/2024 11:03 AM EST): Counseled re low salt diet/increase moderate physical activity. Check home BP BIW and prn CP/DOE/MOREIRA Non smoking patient. FU with me in 4 weeks with labs. Assessment & Plan (04/08/2023 1:03 PM EDT): Controlled. Compliant w/meds Counseled re low salt diet/increase moderate physical activity. Check home BP 2-3 x wk and prn CP/DOE/MOREIRA Non smoking patient. Check labs, unclear if related to testosterone injections Family history of colon cancer 03/03/2023 Encounter for preventive health examination 10/21 Assessment & Plan (07/29/2024 11:07 AM EST): Discussed with patient re increase fresh fruit and vegetable intake. Counseled re moderate exercise as tolerated, up to 20min/d Patient feels safe at home. Eye exam: overdue, pt advised to schedule apt at his Ophthalmology office. Lipids/FBS: overdue, to be ordered. Vaccinations: pt declined Covid and Influenza vaccinations. Dental visit: utd, next one due in August 2024. Assessment & Plan (04/08/2023 1:04 PM EDT): Discussed with patient re increase fresh fruit and vegetable intake. Counseled re moderate exercise as tolerated, up to 20min/d Patient feels safe at home. 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 Lipids/FBS, labs to be ordered Vaccinations, agreed [...] Encounters Date Type Department Care Team Description 09/07/2024 Travel 08/06/[address] [address] Abida Gonzalez MD Results 08/06/2024 Orders Only [address] [address] Abida Gonzalez MD Hypogonadism in male (Primary Dx) 08/03/[address] NUTRITION APPT REQUEST 07/29/2024 9:45 AM EST Office Visit [address] [address] Abida Gonzalez MD Hypogonadism in male (Primary Dx); Encounter for preventive health examination; Class 2 severe obesity due to excess calories with serious comorbidity and body mass index (BMI) of 39.0 to 39.9 in adult (CMS/HCC); Elevated blood pressure reading in office with diagnosis of hypertension; Screening and evaluation for vasectomy; Dietary counseling; Exercise counseling 07/29/2024 Travel 07/28/[address] [address] Abida Gonzalez MD Chart prep 07/19/2024 Patient Outreach [facility] [address] [place] [address] Abida Gonzalez MD Pre-visit Planning ((Unable to reach for PVP screening, LVM)) 06/18/2024 Telephone [facility] [address] [place] [address] Abida Gonzalez MD Call Back Request from Last 3 Months Immunizations Name Administration [...] 07/29/2024 9:54 AM EST Plan of Treatment Upcoming Encounters Date Type Department Care Team (Late st Contact Info) Description 09/14/2024 12:00 PM EDT Telemedicine [facility] [address] [place] [address] Abida Gonzalez MD [address] [place] [address] Health Maintenance Due Date Last Done Comments Alcohol/Substance Use Screening 2002 Hepatitis B Vaccines (1 of 3 - 19+ 3-dose series) 2009 COVID-19 Vaccine (2023-2 5 season) 2024 07/13/2021, 06/06/2021 Influenza Vaccine (#1) 2024 04/05/2020 Depression Screening 07/29/2025 07/29/2024, 04/08/2023 Family Planning (PISQ) 07/29/2025 07/29/2024 SDOH Screening 07/29/2025 07/29/2024 Tobacco Screening 07/29/2025 07/29/2024 Lipid Panel 07/29/2029 07/29/2024, 04/10/2020 DTaP/Tdap/Td Vaccines (4 - T d or Tdap) 04/08/2033 04/08/2023, 02/17/2017, 02/18/2013 Zoster Vaccines (1 of 2) 2040 RSV Patients and Patients Aged 60 years or older (1 - 1-dose 75+ series) 2065 HIV Screening Completed 07/29/2024, 04/10/2020 Hepatitis C Screening Completed 07/29/2024 , 04/10/2020 HIB Vaccines Aged Out No longer [...] Procedure Name Priority Date/Time Associated Diagnosis Comments LH Routine 07/29/2024 10:32 AM EST Hypogonadism in male FSH Routine 07/29/2024 10:32 AM EST Hypogonadism in male TESTOSTERONE, FREE (DIALYSIS) AND TOTAL,MS Routine 07/29/2024 10:32 AM EST Hypogonadism in male SYPHILIS SCREEN Routine 07/29/2024 10:32 AM EST Encounter for preventive health examination COMPREHENSIVE METABOLIC PANEL Routine 07/29/2024 10:32 AM EST Hypogonadism in male CBC WITH AUTO DIFFERENTIAL Routine 07/29/2024 10:32 AM EST Hypogonadism in male LIPID PANEL WITH REFLEX TO DIRECT LDL Routine 07/29/2024 10:32 AM EST Hypogonadism in male HEPATITIS PANEL, GENERAL Routine 07/29/2024 10:32 AM EST Encounter for preventive health examination HIV 1/2 ANTIGEN/ANTIBODY, FOURTH GENERATION W/RFL Routine 07/29/2024 10:32 AM EST Encounter for preventive health examination T-SPOT(R).TB Routine 07/29/2024 10:32 AM EST Encounter for preventive health examination from Last 3 Months Results * Syphilis Screen (07/29/2024 10:32 AM EST) Syphilis Screen Nonreactive Nonreactive [facility] Blood 07/29/2024 10:3 2 AM EST 07/29/2024 11:12 AM EST us Abida Gonzalez MD LAB BLOOD ORDERABLES Fin al Result [facility] [address] [place] [phone] * T-SPOT??.TB (07/29/2024 10:32 AM EST) T Spot TB Negative Negative [facility] Comment:A negative test resu lt does not exclude the possibilityof exposure to or infection with Mycobacteriumtuberculosis (M. tuberculosis). Patients with recentexposure to TB infected individuals exhibiting anegative T-SPOT.TB result should be considered forretesting within 6 weeks or if other relevant clinicalsymptoms indicate. Results from T-SPOT.TB testing mustbe used in conjunction with each individual'sepidemiological history, current medical status,and results of other diagnostic evaluations.The T-SPOT.TB test is qualitative and results arereported as positive, borderline, or negative, giventhat the test controls perform as expected. In linewith the Centers for Disease Control and Prevention's2010 recommendation to report quantitative measurementsalongside the qualitative result, the laboratoryprovides spot counts for informational purposes only.The T-SPOT.TB test should not be interpreted as aquantitative test. TS PANEL A 3 [facility] TS PANEL B 0 [facility] Negative Control Passed [facility] Positive Control Passed [facility] Comment:For additional infor richie, please refer tohttp://education.Partnerpedia/faq/XQY429(This link is being provided for informational/educational purposes only.)THIS TEST WAS PERFORMED AT:[email or web address] [id number] [place] [address]SXIZCIBXENA AMIN MD,PHD 07/29/2024 10:3 2 AM EST 07/29/2024 11:12 AM EST us Abida Gonzalez MD LAB BLOOD ORDERABLES Fin al Result [facility] [address] [place] [phone] * (ABNORMAL) Lipid Panel with Reflex to Direct LDL (07/29/2024 10:32 AM EST) Triglycerides 91 <150 mg/dL [facility] Comment:Desirable Triglyceri de: less than 150 mg/dLBorderline High Triglyceride 150-199 mg/dLHigh Triglyceride: 200-499 mg/dLVery High Triglyceride: greater than or equal to 5OO mg/dL Cholesterol 185 <200 mg/dL [facility] Comment:Desirable Cholestero l: less than 200 mg/dLBorderline High Cholesterol: 200-239 mg/dLHigh Cholesterol: greater than 239 mg/dL LDL Cholesterol Calculated 123(H) <100 mg/dL [facility] Comment:Desirable LDL: less than 100 mg/dLNear Optimal/Above Optimal LDL: 110- 129 mg/dLBorderline High LDL: 130-159 mg/dLHigh LDL: 160-189 mg/dLVery High LDL: greater than or equal to 190 mg/dL HDL Cholesterol 44 >40 mg/dL [facility] Comment:Desirable HDL: great er than 40 mg/dL Note: This HDL assay may give artificially low results in patients with liver disease. Blood 07/29/2024 10:3 2 AM EST 07/29/2024 11:12 AM EST Abida Gonzalez MD LAB BLOOD ORDERABLES Fin al Result Performing Organization Address [facility] de Phone Number [facility] [address] [place] [phone] * Hepatitis Panel, General (07/29/2024 10:32 AM EST) Pathologist [facility] Hepatitis A IgM Nonreactive Nonreactive [facility] Comment:IgM antibodies to DOE V not detected; does not exclude earlyacute or recovered HAV infection. ~Hepatitis B Surface Antibody GRAYZONE Nonreactive [facility] Comment:GRAYZONE: 8.00 mIU/m L TO 11.99 mIU/mLTHE IMMUNE STATUS OF THE INDIVIDUAL SHOULD BE FURTHERASSESSED BY CONSIDERING OTHER FACTORS, SUCH CLINICALSTATUS, FOLLOW-UP TESTING, ASSOCIATED RISK FACTORS, AND THEUSE OF ADDITIONAL DIAGNOSTIC INFORMATION. Hepatitis B Core Antibody Nonreactive Nonreactive [facility] Hepatitis C Antibody Nonreactive Nonreactive [facility] Comment:Antibodies to HCV no t detected; does not exclude early acuteHCV infection. Hepatitis B Surface Ag Negative Negative [facility] Blood 07/29/2024 10:3 2 AM EST 07/29/2024 11:12 AM EST Abida Gonzalez MD LAB BLOOD ORDERABLES Fin al Result Performing Organization Address [facility] de Phone Number [facility] [address] [place] [phone] * (ABNORMAL) CBC auto differential (07/29/2024 10:32 AM EST) Pathologist [facility] White Blood Count 6.4 4.8 - 10.8 X10*3/uL [facility] Red Blood Count 5.18 4.60 - 5.80 X10*6/uL [facility] Hemoglobin 15.0 14.0 - 18.0 g/dl [facility] Hematocrit 44.6 42.0 - 52.0 % [facility] Mean Corpuscular Volume 86.1 80.0 - 98.0 fL [facility] Mean Corpuscular Hemoglobin 29.0 27.0 - 33.0 pg [facility] Mean Corpuscular HGB Conc 33.6 31.0 - 36.0 g/dl [facility] Red Cell Distribution Width 13.2 11.0 - 16.0 % [facility] Platelet Count 250 160 - 400 X10*3/uL [facility] Mean Platelet Volume 11.0 9.4 - 12.4 fL [facility] Neutrophils Percent Auto 54.4 45 - 73 % [facility] Imm Gran Pct Auto 0.3 0.0 - 0.4 % [facility] Lymphocytes Percent Auto 32.5 20 - 40 % [facility] Monocytes Percent Auto 6.4 2 - 11 % [facility] Eosinophils Percent Auto 5.3(H) 0 - 4 % [facility] Basophils Percent Auto 1.1 0 - 2 % [facility] NRBC Pct Auto 0.0 0.0 - 0.2 /100WBC [facility] Neutrophils Absolute Auto 3.5 2.0 - 8.3 x10*3/uL [facility] Imm Gran Abs Auto 0.02 0.00 - 0.03 X10*3/uL [facility] Lymphocytes Absolute Auto 2.1 1.2 - 4.9 X10*3/uL [facility] Monocytes Absolute Auto 0.4 0.1 - 1.2 X10*3/uL [facility] Eosinophils Absolute Auto 0.3 0.0 - 0.4 X10*3/uL [facility] Basophils Absolute Auto 0.1 0.0 - 0.2 X10*3/uL [facility] NRBC Abs Auto 0.000 0.0 - 0.012 X10*3/uL [facility] Blood Venous blood specimen / Unknown 07/29/2024 10:32 AM EST 07/29/2024 11:12 AM EST Abida Gonzalez MD LAB BLOOD ORDERABLES Fin al Result Performing Organization Address City/[facility]/ZIP Co de Phone Number [facility] [address] [place] [phone] * HIV-1/2 Antigen and Antibodies, Fourth Generation, with Reflexes (07/29/2024 10:32 AM EST) HIV AB/AG Nonreactive Nonreactive [facility] Comment:HIV-1 p24 Ag and/or HIV-1/HIV-2 Ab not detected.A test result that is nonreactive does not exclude thepossibility of exposure to or infection with HIV-1 and/orHIV-2. Nonreactive results in this assay for individualswith prior exposure to HIV-1 and/or HIV-2 may be due toantigen and antibody levels that are below the limit ofdetection of this assay.The [employer] HIV Ag/Ab Combo assay result andsupplemental assay results should be interpreted inconjunction with the patient's clinical presentation,history and other laboratory results. If the results areinconsistent with clinical evidence, additional testing issuggested to confirm the result. Blood Venous blood specimen / Unknown 07/29/2024 10:32 AM EST 07/29/2024 11:12 AM EST Abida Gonzalez MD LAB BLOOD ORDERABLES Fin al Result Performing Organization Address City/[facility]/ZIP Co de Phone Number [facility] [address] [place] [phone] * (ABNORMAL) Testosterone, Free (Dialysis) And Total, MS (07/29/2024 10:32 AM EST) Testosterone, Total 189(A) 250 - 1100 ng/dL [facility] Comment:For additional infor mation, please refer tohttp://education.[employer].Judicata/faq/IltivYchpibrbnyvwBXJUUJBHH622(This link is being provided for informational/educational purposes only.)This test was developed and its analytical performancecharacteristics have been determined by [employer], [place]. It hasnot been cleared or approved by the U.S. Food and DrugAdministration. This assay has been validated pursuantto the CLIA regulations and is used for clinicalpurposes. Testosterone, Free 34.2(A) 35.0 - 155.0 pg/mL [facility] Comment:This test was develo ped and its analytical performancecharacteristics have been determined by [employer], [place]. It hasnot been cleared or approved by the U.S. Food and DrugAdministration. This assay has been validated pursuantto the CLIA regulations and is used for clinicalpurposes.THIS TEST WAS PERFORMED AT:[email or web address] [place] [address]QIKTAUWXENA AMIN MD,PHD Blood Venous blood specimen / Unknown 07/29/2024 10:32 AM EST 07/29/2024 11:12 AM EST Abida Gonzalez MD LAB BLOOD ORDERABLES Fin al Result [facility] [address] [place] [phone] * LH (07/29/2024 10:32 AM EST) Lutenizing Hormone 1.9 1.5 - 9.3 mIU/mL [facility] Comment:THIS TEST WAS PERFOR MED AT:[email or web address] [address] [address]BYYNYOTILIO RICHARDS MD Blood Venous blood specimen / Unknown 07/29/2024 10:32 AM EST 07/29/2024 11:12 AM EST us Abida Gonzalez MD LAB BLOOD ORDERABLES Fin al Result Performing Organization Address [facility] Co de Phone Number [facility] [address] [place] [phone] * FSH (07/29/2024 10:32 AM EST) Follicle Stimulating Hormone 3.8 1.4 - 12.8 mIU/mL [facility] Comment:THIS TEST WAS PERFOR MED AT:[employer] [place] [phone] RICHARDS MD Blood Venous blood specimen / Unknown 07/29/2024 10:32 AM EST 07/29/2024 11:12 AM EST Abida Gonzalez MD LAB BLOOD ORDERABLES Fin al Result Performing Organization Address [facility] de Phone Number [facility] [address] [place] [phone] * (ABNORMAL) Comprehensive Metabolic Panel (07/29/2024 10:32 AM EST) Sodium 137 135 - 145 mmol/L [facility] Potassium 3.9 3.3 - 5.1 mmol/L [facility] Chloride 109(H) 96 - 108 mmol/L [facility] Carbon Dioxide 22 22 - 29 mmol/L [facility] Anion Gap 10(L) 12 - 20 [facility] Urea Nitrogen (BUN) 20(H) 9 - 16 mg/dL [facility] Creatinine, Serum 0.96 0.5 - 1.4 mg/dL [facility] Estimated Glomerular Filt Rate >60 [facility] Comment:Chronic Kidney Disea se: Estimated GFR < 60 mL/min/1.60p1Awdgzz Kidney Disease: Estimated GFR < 15 mL/min/1.73m2 Glucose 105 60 - 115 mg/dL [facility] Calcium 9.6 8.4 - 10.2 mg/dL [facility] Bilirubin, Total 0.8 0.0 - 1.0 mg/dL [facility] Aspartate Amino Transferase 20 5 - 37 U/L [facility] Alanine Aminotransferase 27 0 - 40 U/L [facility] Total Protein 8.5(H) 6.5 - 8.0 g/dL [facility] Albumin Level 4.1 3.5 - 5.0 g/dL [facility] Alkaline Phosphatase 95 39 - 117 U/L [facility] Blood Venous blood specimen / Unknown 07/29/2024 10:32 AM EST 07/29/2024 11:12 AM EST Abida Gonzalez MD LAB BLOOD ORDERABLES Fin al Result [facility] [address] [place] [phone] from Last 3 Months Insurance [employer] Care Teams Health Informatics Specialist Relationship Specialty Start Date End Date Abida Gonzalez MD [address] [place] [phone] PCP - General Family Medicine 04/28/19
--- OUTSIDE RECORDS SUMMARY | 2024-09-07 10:58 | XMS_ITS | Encounter Summary ---
Author Organization [employer] Address [address] [place] [address] Care Team Providers Care [employer] Name Role Phone Abida Gonzalez MD Primary Care Provider + [phone] Reason for Visit * Reason Onset Date Comments Surgery 08/24/2024 Encounter Details Date Type Department Care Team (Late st Contact Info) Description 08/24/2024 Telephone Orthopedic Surgery [facility] [phone] [phone] Nicole Ly MA Surgery Social History Tobacco Use Types Packs/Day Years Used Date Smoking Tobacco: Never Alcohol Use Standard Drinks/Week Comments Yes 0 (1 standard drink = 0.6 oz pur e alcohol) Sex and Gender Information Value Date Recorded Sex Assigned at Not on file Legal Sex Male 8:26 AM EST Gender Identity Not on file Sexual Orientation Not on file documented as of this encounter Progress Notes * Nicole Ly MA - 08/24/2024 12:01 PM EST Hello- Patient is wanting to proceed with surgery, can you enter case please. Nicole Andrade documented in this encounter Plan of Treatment Upcoming Encounters Date Type Department Care Team (Latest Contact Info) Description 09/23/2024 1:00 PM EDT Hospital Encounter [facility] [address] [place] [phone] Marcelo Sanders MD [address] [address] 09/23/2024 1:00 PM EDT - 09/23/2024 4:00 PM EDT Surgery [facility] [place] [address] [place] [phone] Marcelo Sanders MD [address] [address] ARTHROTOMY LEFT KNEE 10/11/2024 11:45 AM EDT Office Visit Orth[facility] [place] [address] [phone] Marcelo Sanders MD [address] [phone] Scheduled Procedures Name Priority Associated Diagnoses Date/Ti me ARTHROTOMY KNEE Patellar tendon rupture, left, sequela 09/23/2024 1:00 PM EDT REPAIR LIGAMENT OR TENDON KNEE Patellar tendon rupture, left, sequela 09/23/2024 1:00 PM EDT documented as of this encounter Visit Diagnoses Not on filedocumented in this encounter Care Teams [employer] Relationship Specialty Start Date End Date Abida Gonzalez MD [address] [place] [phone] PCP - General Internal Medicine 05/24/24 documented as of this encounter
--- OUTSIDE RECORDS SUMMARY | 2024-09-07 10:58 | XMS_ITS | Encounter Summary ---
Author Organization [employer] Address [address] [place] [address] Care Team Providers Care Silk Hanger Name Role Phone Abida Gonzalez MD Primary Care Provider + [phone] Reason for Visit * Reason Comments Pain Encounter Details Date Type Department Care Team ([facility] st Contact Info) Description 08/09/2024 9:00 AM EST Consult Orthopedic Surgery - [place] [address] [address] Marcelo Sanders MD [address] [address] Patellar tendon rupture, left, sequela (Primary Dx) Social History Tobacco [...] - Inhaled Oxygen Concentration - - Weight 121 kg (267 lb) 08/09/2024 9:08 AM EST Height 172.7 cm (5' 7.99 ) 08/09/2024 9:08 AM ES T Body Mass Index 40.61 08/09/2024 9:08 AM EST documented in this encounter Progress Notes * Marcelo Sanders MD - 08/09/2024 9:00 AM EST Reason For Visit: Pain of the Left Knee Patient: Daniel Cosme : 1990 VISIT DATE: 08/09/2024 HPI: Daniel Cosme is a 33 y.o. year old male who presents follow up on his left knee. Original injury tohis knee was in December 2023. 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 He underwent physical therapy from January until April including a work conditioning protocol. Continues to have significant tenderness and pain and limitation of function. MRI confirms insertional partial tearing at the inferior pole of the patella. ROS: GENERAL: negative MUSCULOSKELETAL: See HPI The remainder of the review of systems is noncontributory Allergies: Allergies Allergen Reactions Other Seasonal allergies Past Medical History: has a past medical history of Fracture, radius and ulna, shaft, Injury of right foot (11/06/2022), Right upper quadrant pain (11/06/2022), and Subareolar mass of right breast (11/06/2022). Social History: Social History Tobacco Use Smoking status: Never Smokeless tobacco: Not on file Substance Use Topics Alcohol use: Yes Past Surgeries: Past Surgical History: Procedure Laterality Date ROTATOR CUFF REPAIR PROCEDURE: HISTORICAL ROTATOR CUFF REPAIR; COMMENT: right side Medications: No outpatient medications have been marked as taking for the 08/09/24 encounter (Consult) with Marcelo Sanders MD. Physical Exam: Vitals: 08/09/24 0908 Weight: 121 kg (267 lb) Height: 1.727 m (67.99 ) APPEARANCE: Alert, oriented, no acute distress LEFTKNEE KNEE EXAM: LEFT Inspection: Normal appearing knee Palpation: Significant tenderness at the inferior pole just lateral to midline of the insertional aspect of the patella tendon. No other tenderness ROM: Active full range of motion Passive range of motion Neurovascular: No gross deficits distally Strength: Normal quadriceps and hamstring strength. Significant pain to resisted knee extension at the partial tear site. Special Tests: Ligamentously stable. No obvious meniscal findings. Imaging: No imaging today. Assessment and Plan: 1. Patellar tendon rupture, left, sequela He has a partial patellar tendon tear refractory to conservative treatment. He has undergone several months of activity modification and physical therapy. Has not worked since this incident in December 2023. He was offered PRP but this was declined by insurance. At this point, my recommendation would be to address this surgically. He is anxious to get back to work. Explained surgery, risks, benefits and alternatives. He would like to proceed. PLANNED PROCEDURE: LEFT KNEE Arthroscopy, open patellar tendon repair I reviewed my findings and plan with the patient today. We went over the nature of the upcoming surgery as well as the anticipated recovery time. Informed consent was obtained today. The patient clearly understands the information presented and is capable of making decisions voluntarily. They demonstrated a clear understanding of the problem and the risks and benefits of treatment. The discussion included a description of the proposed treatment, including the purpose, duration, methods and implements used, as well as the probability of success. We discussed all material risks of the procedure, as well as the possibility of unforeseen or unanticipated risks. The material risks include, but are not limited to infection, bleeding, injury to blood vessels and/or nerves, scarring, stiffness, no change in symptoms, need for further surgery, blood clots, stroke, and . The discussion further included reasonable alternatives and the risks of not being treated. Postoperative pain medications were reviewed, and side effects discussed. We confirmed their postoperative appointment. Follow up 7-14 DAYS after surgery. Marcelo Sanders MD Physical Therapy: PT/OT referral given today Marcelo Sanders MD documented in this encounter Plan of Treatment Upcoming Encounters Date Type Department Care Team (Latest Contact Info) Description 09/23/2024 1:00 PM EDT Hospital Encounter [facility] Main OR [address] [place] [address] Marcelo Sanders MD [address] [address] 09/23/2024 1:00 PM EDT - 09/23/2024 4:00 PM EDT Surgery [facility] OR [address] [place] [address] Marcelo Sanders MD [address] [address] ARTHROTOMY LEFT KNEE 10/11/2024 11:45 AM EDT Office Visit Orthopedic Surgery - [place] 160 175 [facility] 160 [place] [phone] Marcelo Sanders MD 175 [facility] 160 [place] [address] Scheduled Procedures Name Priority Associated Diagnoses Date/Ti me ARTHROTOMY KNEE Patellar tendon rupture, left, sequela 09/23/2024 1:00 PM EDT REPAIR LIGAMENT OR TENDON KNEE Patellar tendon rupture, left, sequela 09/23/2024 1:00 PM EDT documented as of this encounter Visit Diagnoses Diagnosis Patellar tendon rupture, left, sequela- Primary Patellar tendon rupture, left, sequela documented in this encounter Care Teams Silk Hanger Relationship Specialty Start Date End Date Abida Gonzalez MD [address] [place] [phone] PCP - General Internal Medicine 05/24/24 documented as of this encounter
--- OUTSIDE RECORDS SUMMARY | 2024-09-07 10:58 | XMS_ITS | Encounter Summary ---
Author Organization [facility] Address [address] [place] [address] Care Team Providers Care Dough Molder Hand Name Role Phone Abida Gonzalez MD Primary Care Provider [phone] Encounter Details Date Type Department Care Team (Late st Contact Info) Description 08/24/2024 Telephone Orthopedic Surgery - [place] 160 175 [facility] [address] [place] [phone] Marcelo Sanders MD 175 [facility] Ja 160 [place] [address] Social History Tobacco Use Types Packs/Day Years [...] as of this encounter Progress Notes * Mansi Hanson - 08/24/2024 11:49 AM EST Pt calling on status of surgical date and wanted to verify that this is a [facility] 12/26/23 documented in this encounter Plan of Treatment Upcoming Encounters Date Type Department Care Team (Latest Contact Info) Description 09/23/2024 1:00 PM EDT Hospital Encounter [facility] Main OR [address] [place] [phone] Marcelo Sanders MD [address] [address] 09/23/2024 1:00 PM EDT - 09/23/2024 4:[address] [facility] Main [place] [address] [place] [phone] Marcelo Sanders MD [address] [address] ARTHROTOMY LEFT KNEE 10/11/2024 11:45 AM EDT Office Visit Orthopedic Surgery - [place] [address] [phone] Marcelo Sanders MD [address] [address] Scheduled Procedures Name Priority Associated Diagnoses Date/Ti me ARTHROTOMY KNEE Patellar tendon rupture, left, sequela 09/23/2024 1:00 PM EDT REPAIR LIGAMENT OR TENDON KNEE Patellar tendon rupture, left, sequela 09/23/2024 1:00 PM EDT documented as of this encounter Visit Diagnoses Not on filedocumented in this encounter Care Teams Dough Molder Hand Relationship Specialty Start Date End Date Abida Gonzalez MD [address] [place] [phone] PCP - General Internal Medicine 05/24/24 documented as of this encounter
--- OUTSIDE RECORDS SUMMARY | 2024-09-07 10:58 | XMS_ITS | Clinical Summary ---
Author Organization [facility] Address [address] [place] [address] Care Team Providers Care Director Dermatology Name Role Phone Unavailable Primary Care Provider [...] topic OCCUPATION HEALTH Corporate Other [address] [address] Daniel Cosme Personal/Family Self 1990 [address] [place] [address]
--- OUTSIDE RECORDS SUMMARY | 2024-09-07 10:58 | XMS_ITS | Encounter Summary ---
Author Organization [employer] Address [address] [place] [address] Care Team Providers Care Enrolled Nurse Name Role Phone Abida Gonzalez MD Primary Care Provider + Encounter Details Date Type Department Care Team (Latest Contact Info) Description 09/07/2024 Travel Social History Tobacco Use Types Packs/Day [...] as of this encounter Plan of Treatment Upcoming Encounters Date Type Department Care Team (Late st Contact Info) Description 09/14/2024 12:00 PM EDT Telemedicine [facility] [address] [place] [address] Abida Gonzalez MD [address] [place] [phone] documented as of this encounter Visit Diagnoses Not on filedocumented in this encounter Additional Health Concerns Assessment Noted Time PHQ-9 Depression Total Score: 0 04/08/20 23 9:36 AM EDT documented as of this encounter Care Teams Enrolled Nurse Relationship Specialty Start Date End Date Abida Gonzalez MD [address] [place] [address] PCP - General Family Medicine 04/28/19 documented as of this encounter
--- OUTSIDE RECORDS SUMMARY | 2024-09-07 10:58 | XMS_ITS ---
Author Name [facility] Organization Unknown Encounters Encounter Type Encounter Reason Primary Diagnosis Location Date Ambulatory [facility] 11/04/2022
--- OUTSIDE RECORDS SUMMARY | 2024-09-07 10:58 | XMS_ITS | Clinical Summary ---
Author Organization [facility] [address] [place] [address] Address [address] [place] [address] Phone Care Team Providers Care Blueprint Assembler Name Role Phone Abida Gonzalez MD Primary Care Provider + [phone] Allergies Active Allergy Reactions Criticality Noted Date Comments Other 12/11/2012 Seasonal allergies Medications No known medications Active Problems Problem Noted Date Diagnosed Date Patellar tendon rupture, left, sequela BRBPR (bright red blood per rectum) 04/14/2024 Known medical problems 04/06/2024 Overview (04/06/2024): NO ACTIVE MEDICAL PROBLEMS(aka [id number]) Hypogonadism in male 04/08/2023 Overview (07/08/2024): Dx and treated by Dr Khurram Canela ([place] and [place]), only telehealth Elevated blood pressure read ing in office with diagnosis of hypertension 04/08/2023 Class 2 obesity 11/06/2022 Resolved Problems Problem Noted Date Diagnosed Date Resolved Date Subareolar mass of right breast 11/06/2022 07/08/2024 Right upper quadrant pain 11/06/2022 Pleuritic pain 11/06/2022 07/08/2024 Injury of right foot 11/06/2022 025 Encounters Date Type Department Care Team Description 08/24/2024 Telephone Orthopedic Surgery - [place] [address] [place] [phone] Nicole Ly MA Surgery 08/24/2024 Telephone Orthopedic Surgery - [place] 160 175 [facility] 160 [place] [phone] Marcelo Sanders MD 08/09/2024 9:00 AM EST Consult Orthopedic Surgery [facility] 160 175 [facility] 160 [place] [phone] Marcelo Sanders MD Patellar tendon rupture, left, sequela (Primary Dx) 07/08/2024 8:30 AM EST Office Visit Orthopedic Surgery [facility] 160 175 [facility] 160 [place] [phone] Rosa Wagoner MD Patellar tendon strain, left, sequela (Primary Dx) from Last 3 Months Immunizations [...] on file Sexual Orientation Not on file Obstetrics History Last Filed [...] Mass Index 40.61 08/09/2024 9:08 AM EST Plan of Treatment Upcoming Encounters Date Type Department Care Team (Latest Contact Info) Description 09/23/2024 1:00 PM EDT Hospital Encounter [facility] Main OR [address] [place] [phone] Marcelo Sanders MD [address] [address] 09/23/2024 1:00 PM EDT - 09/23/2024 4:00 PM EDT Surgery [facility] Main OR [address] [place] [phone] Marcelo Sanders MD [address] [address] ARTHROTOMY LEFT KNEE 10/11/2024 11:45 AM EDT Office Visit Orthopedic Surgery - [place] [address] [phone] Marcelo Sanders MD [address] [address] Scheduled Procedures Name Priority Associated Diagnoses Date/Ti me ARTHROTOMY KNEE Patellar tendon rupture, left, sequela 09/23/2024 1:00 PM EDT REPAIR LIGAMENT OR TENDON KNEE Patellar tendon rupture, left, sequela 09/23/2024 1:00 PM EDT Health Maintenance Due Date Last Done Comments Hepatitis B Vaccines (1 of 3 - 19+ 3-dose series) 2009 Social Influencers of Health Screening 05/26/2022 COVID-19 Vaccine (3 - 2023-2 5 season) 2024 07/13/2021, 06/06/2021 Influenza Vaccine (#1) 2024 04/05/2020 Depression Screening 04/08/2024 04/08/2023 Cholesterol Screening (Lipid Panel) 04/10/2025 04/10/2020, 02/22/2014 Hypertension/CHF/CAD Annual BMP Blood Test 07/29/2025 07/29/2024, 02/22/2014 DTaP,Tdap,and Td Vaccines (4 - Td or Tdap) 04/08/2033 04/08/2023, 02/17/2017, 02/18/2013 Hepatitis C Screening Completed 02/18/2013 HIV Screening Completed 07/29/2024, 04/10/2020, 02/18/2013 HIB Vaccines Aged Out No [...] patient's age to complete this topic Meningococcal B Vacine Aged Out No lo nger eligible based on patient's age to complete [...] Procedure Name Priority Date/Time Associated Diagnosis Comments ANNUAL BMP BLOOD TEST Routine 02/22/2014 LIPID PANEL Routine 02/22/2014 HEPATITIS C SCREENING Routine 02/18/2013 HIV SCREENING Routine 02/18/2013 from Last 3 Months or Most Recently Relevant to Health Maintenance Results * Annual BMP Blood Test (02/22/2014) [facility] Annual BMP Blood Test abstracted [facility] Provider HEALTH MAINTENANCE Final Result * Lipid panel (02/22/2014) [facility] LDL/HDL Ratio 3 0 - 4 Triglycerides 95 0 - 150 mg/dL Cholesterol 153 0 - 200 mg/dL HDL 44 >=40 mg/dL LDL Cholesterol 90 0 - 100 mg/dL Blood Venous blood specimen / Unknown [facility] Provider LAB BLOOD ORDERABLES Martine l Result * HIV Screening (02/18/2013) [facility] HIV Screening abstracted [facility] Provider HEALTH MAINTENANCE Final Result * Hepatitis C Screening (02/18/2013) [facility] Hepatitis C Screening abstracted [facility] Provider HEALTH MAINTENANCE Final Result from Last 3 Months or Most Recently Relevant to Health Maintenance Insurance [employer] Care Teams Blueprint Assembler Relationship Specialty Start Date End Date Abida Gonzalez MD [address] [place] [phone] PCP - General Internal Medicine 05/24/24
--- OUTSIDE RECORDS SUMMARY | 2024-09-07 10:58 | XMS_ITS | Encounter Summary ---
Author Organization [employer] Address [address] [facility] 7t [place] [address] Care Team Providers Care Instructional Manager Name Role Phone Abida Gonzalez MD Primary Care Provider + Reason for Visit * Reason Onset Date Comments Results 08/06/2024 Encounter Details Date Type Department Care Team ([facility] st Contact Info) Description 08/06/2024 Telephone [facility] [address] [place], [place] [phone] Abida Gonzalez MD 230 [place], [place] [phone] Results Social History Tobacco Use Types Packs/Day Years [...] encounter Miscellaneous Notes * Telephone Encounter - Josefina Bazzi RN - 08/10/2024 12:08 PM EST TC placed to patient [phone] in regards to below message. Patient verbalized understanding andis aware he will receive a letter or a call from the office with appointment date and time. Patientto f/u PRN. ----- Message from Abida Gonzalez MD sent at 08/06/2024 2:05 PM EST ----- Labs on 07/29/2024 showed low free and total testosterone. He is known to have hypogonadism, please call him and let him know that his testosterone levels are low so I will refer him to endocrinology for additional evaluation and follow-up with him at next visit with me. * Telephone Encounter - Edd Solis RN - 08/06/2024 2:18 PM EST TC placed to patient to inform of provider note below. No answer left voicemail to return call to clinic. * Telephone Encounter - Edd Solis RN - 08/06/2024 2:18 PM EST ----- Message from Abida Gonzalez MD sent at 08/06/2024 2:05 PM EST ----- Labs on 07/29/2024 showed low free and total testosterone. He is known to have hypogonadism, please call him and let him know that his testosterone levels are low so I will refer him to endocrinology for additional evaluation and follow-up with him at next visit with me. documented in this encounter Plan of Treatment Upcoming Encounters Date Type Department Care Team (Late st Contact Info) Description 09/14/2024 12:00 PM EDT Telemedicine [facility] [address] [place] [address] Abida Gonzalez MD 230 [place] [address] documented as of this encounter Visit Diagnoses Not on filedocumented in this encounter Additional Health Concerns Assessment Noted Time PHQ-9 Depression Total Score: 0 04/08/20 23 9:36 AM EDT documented as of this encounter Care Teams Instructional Manager Relationship Specialty Start Date End Date Abida Gonzalez MD [address] [place] [address] PCP - General Family Medicine 04/28/19 documented as of this encounter
== END 2024-09-07 10:33 | disposition home or self-care (01) ==
LOC: HO.ENCR 09:50
PROVIDERS: PCP Internal Medicine; Visit Provider Internal Medicine Endocrinology, Diabetes & Metabolism
DX: E23.0 Hypopituitarism (principal)
CPT/HCPCS: 99204

== ENCOUNTER 2024-09-09 09:08 | Outpatient (REF) | payer OTHER, SELFPAY ==
[2024-09-09 11:01] LABS: Ferritin 81 ng/mL (20-250); Free T4 (Free Thyroxine) 1.07 ng/dL (0.71-1.85); Thyroid Stimulating Hormone 1.51 uIU/mL (0.32-4.0)
[2024-09-10 08:29] LABS: Prolactin 7.4 ng/mL (2.0-18.0)
[2024-09-18 13:33] LABS: Testosterone, Free 46 pg/mL (35.0-155.0); Testosterone, Total 220 ng/dL (250-1100)
== END 2024-09-09 09:09 | disposition home or self-care (01) ==
LOC: HO.10HDL 09:08
PROVIDERS: Visit Provider Internal Medicine Endocrinology, Diabetes & Metabolism
DX: E23.0 Hypopituitarism (principal)
CPT/HCPCS: 36415; 82728; 84146; 84402; 84403; 84439; 84443

== ENCOUNTER 2024-09-22 10:42 | Outpatient (REF) | payer OTHER, SELFPAY ==
--- NOTE | ~2024-09-22 | MR_ITS ---
EXAMINATION: MR BRAIN PITUITARY PROTOCOL WITHOUT AND WITH CONTRAST CLINICAL INFORMATION: Hypopituitarism COMPARISON: None available. TECHNIQUE: Multiplanar, multisequence MRI of the brain /pituitary protocol was obtained before and after the intravenous administration of 5 mL Gadavist without reported immediate complications. FINDINGS: The pituitary gland demonstrates normal morphology and enhancement pattern with normal superior concavity. The pituitary stalk is midline and measures less than 2 mm in maximal thickness. No enhancing lesion within the sellar suprasellar region. The optic chiasm is intact and demonstrated normal signal. Flow-void signal within the cavernous and supraclinoid segments of the ICA is normal. The supraclinoid/terminus segment of the right ICA about the underneath surface of the optic chiasm. No signal abnormality or enhancing lesion in the cavernous sinuses. The midline structures are intact and normal. No restricted diffusion. No acute intracranial hemorrhage, mass effect, midline shift, hydrocephalus or herniation. Flow-void signal within the main cerebral vessels is normal. Sung-white matter differentiation is normal. There is a large volume, 3 cm retention cyst in the right maxillary sinus. There is no abnormal enhancement within the intra-axial or the extra-axial compartment of the cranium based of the axial T1 postcontrast sequence. MR/MR head/brain wo/w con IMPRESSION: Normal pituitary gland. Large-volume 3 cm retention cyst, right maxillary sinus. No enhancing mass. Right ICA abutting the underneath surface of the right optic chiasm, nonspecific.. Electronically signed by: Shon Duarte MD 09/23/2024 08:54 AM EDT
[2024-09-22] MEDS: gadobutroL 7.5 ML VIAL IVPUSH (11:25)
--- OUTSIDE RECORDS SUMMARY | 2024-09-22 12:45 | XMS_ITS | Clinical Summary ---
Author Organization [facility] Address [address] [place] [address] Care Team Providers Care Film Processing Supervisor Name Role Phone Unavailable Primary Care Provider [...] topic OCCUPATION HEALTH Corporate Other 1990 [address] [address] Daniel Cosme Personal/Family Self 1990 [address] [place] [address]
--- OUTSIDE RECORDS SUMMARY | 2024-09-22 12:45 | XMS_ITS | Clinical Summary ---
Author Organization [address] Address [address] [place] [address] Phone Care Team Providers Care Artistic Associate Name Role Phone Abida Gonzalez MD Primary Care Provider + [phone] Allergies Active Allergy Reactions Criticality Noted Date Comments Other 12/11/2012 Seasonal allergies Medications cetirizine (ZyrTEC) 10 mg tablet Take 1 tablet (10 mg total) by mouth 1 (one) time each day. Active Active Problems Problem Noted Date Diagnosed Date Patellar tendon rupture, left, sequela 5 BRBPR (bright red blood per rectum) 04/14/2024 Known medical problems 04/06/2024 Overview (04/06/2024): NO ACTIVE MEDICAL PROBLEMS(aka [id number]) Hypogonadism in male 04/08/2023 Overview (07/08/2024): Dx and treated by Dr Khurram Canela ([place] and [place]), only telehealth Elevated blood pressure read ing in office with diagnosis of hypertension 04/08/2023 Class 2 obesity 11/06/2022 Resolved Problems Problem Noted Date Diagnosed Date Resolved Date Subareolar mass of right breast 11/06/2022 07/08/2024 Right upper quadrant pain 11/06/2022 Pleuritic pain 11/06/2022 07/08/2024 Injury of right foot 11/06/2022 025 Encounters Date Type Department Care Team Description 09/09/[address] [place] [address] [facility] 160 175 [facility] 160 [place] [phone] Marcelo Sanders MD 09/09/2024 [place] [facility] [address] [phone] Janet Viveros MA Post-op PT Order 08/24/2024 [place] [facility] [address] [phone] Nicole Ly MA Surgery 08/24/[address] [place] [address] [facility] [address] [phone] Marcelo Sanders MD 08/09/2024 9:00 AM EST Consult [facility] [address] [phone] Marcelo Sanders MD Patellar tendon rupture, left, sequela (Primary Dx) 07/08/2024 8:30 AM EST Office Visit Orthopedic Surgery [facility] [address] [phone] Rosa Wagoner MD Patellar tendon strain, left, [...] PROCEDURE: HISTORICAL ROTATOR CUFF REPAIR; COMMENT: right sideX2 OTHER SURGICAL HISTORY VASECTOMY Medical History Medical History Date Comments Fracture, [...] - Inhaled Oxygen Concentration - - Weight 118 kg (260 lb) 09/21/2024 11:00 AM EDT Height 172.7 cm (5' 8 ) 09/21/2024 11:00 AM EDT Body Mass Index 39.53 09/21/2024 11:00 AM EDT Plan of Treatment Upcoming Encounters Date Type Department Care Team (Latest Contact Info) Description 09/23/2024 1:00 PM EDT Hospital Encounter [facility] Main OR [address] [place] [phone] Marcelo Sanders MD [address] [place] [address] 09/23/2024 1:00 PM EDT - 09/23/2024 4:00 PM EDT Surgery [facility] Main OR [address] [place] [phone] Marcelo Sanders MD [address] [place] [address] ARTHROTOMY LEFT KNEE [[id number] (CPT??)] 10/11/2024 11:45 AM EDT Office Visit Orthopedic Surgery - [address] [place] [phone] Marcelo Sanders MD 175 [facility] 160 [place] [address] Scheduled Procedures Name Priority Associated Diagnoses Date/Ti me ARTHROTOMY KNEE Patellar tendon rupture, left, sequela 09/23/2024 1:00 PM EDT REPAIR LIGAMENT OR TENDON KNEE Patellar tendon rupture, left, sequela 09/23/2024 1:00 PM EDT Health Maintenance Due Date Last Done Comments Hepatitis B Vaccines (1 of - 19+ 3-dose series) 2009 Social Influencers of Health Screening 05/26/2022 COVID-19 Vaccine (2023-2 5 season) 2024 07/13/2021, 06/06/2021 Depression Screening 04/08/2024 04/08/2023 Influenza Vaccine (Season Ended) 2025 04/05/2020 Cholesterol Screening (Lipid Panel) 04/10/2025 04/10/2020, 02/22/2014 [...] Results * Annual BMP Blood Test (02/22/2014) [facility] Annual BMP Blood Test abstracted [facility] Provider HEALTH MAINTENANCE Final Result * Lipid panel (02/22/2014) [facility] LDL/HDL Ratio 3 0 - 4 Triglycerides 95 0 - 150 mg/dL Cholesterol 153 0 - 200 mg/dL HDL 44 >=40 mg/dL LDL Cholesterol 90 0 - 100 mg/dL Blood Venous blood specimen / Unknown [facility] Provider LAB BLOOD ORDERABLES Martine l Result * HIV Screening (02/18/2013) [facility] HIV Screening abstracted [facility] Provider HEALTH MAINTENANCE Final Result * Hepatitis C Screening (02/18/2013) [facility] Hepatitis C Screening abstracted Historical Provider HEALTH MAINTENANCE Final Result from Last 3 Months or Most Recently Relevant to Health Maintenance Insurance [facility] Care Teams Artistic Associate Relationship Specialty Start Date End Date Abida Gonzalez MD [address] [place] [phone] PCP - General Internal Medicine 05/24/24
--- OUTSIDE RECORDS SUMMARY | 2024-09-22 12:45 | XMS_ITS | Clinical Summary ---
Author Organization [employer] Address [address] [place] [address] Care Team Providers Care [employer] Demonstrator Name Role Phone Abida Gonzalez MD Primary [...] Active Problems Problem Noted Date Diagnosed Date Habitual snoring 09/10/2024 Assessment & Plan (09/14/2024 4:11 PM EDT): Patient has a sleep disturbance and associated comorbidities (obesity, hypertension and hypogonadism) , a sleep study has been ordered, awaiting auth by insurance. Class 2 severe obesity due t o excess calories with serious comorbidity and body mass index (BMI) of 39.0 to 39.9 in adult 07/29/2024 Assessment & Plan (09/14/2024 1:06 PM EDT): I had discussed about diet and exercise and decrease calorie take. Patient is interested on medications, he agreed to start with dietitian evaluation and I will follow-up with him in 2 or 3 months Assessment & Plan (07/29/2024 11:05 AM EST): Discussed re weight reduction options including exercise, life style modifications, diet. Recommended to decrease soda and sugary beverage consumption, increase protein intake with meals (at least 1 portion of protein with each meal) to assist with satiety, increase dietary fiber Recommended at least 150 min/week of moderate intensity exercise. 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 Screening and evaluation for vasectomy Assessment & Plan (07/29/2024 2:37 PM EST): Patient never had vasectomy that he was referred to few years ago as he couldn't afford copayment. He will bring me information re specialist he would like to be referred to. Hypogonadism in male 04/08/2023 Overview (04/08/2023): Dx and treated by Dr Khurram Canela ([place] and [place]), only telehealth Assessment & Plan (09/14/2024 1:06 PM EDT): Followed by Dr. Chaney, MRI of the brain is pending next week. Assessment & Plan (07/29/2024 11:02 AM EST): Pt has been off Testosterone for more than a year, needs to check Testosterone and FSH levels. Will FU at next appointment. Assessment & Plan (04/08/2023 1:02 PM EDT): Unclear Dx, will obtain records from who is a neuro surgeon based out of [place] Check testosterone levels Elevated blood pressure read ing in office with diagnosis of hypertension 04/08/2023 Assessment & Plan (09/14/2024 1:05 PM EDT): Not checking BP at home, counseled re low salt diet/increase moderate physical activity. Check home BP BIW and prn CP/DOE/MOREIRA Non smoking patient. 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/FBS, labs to be ordered Vaccinations, agreed [...] Encounters Date Type Department Care Team Description 09/15/[address] [facility] [address] [place] [phone] Abida Gonzalez MD 09/14/2024 12:00 PM EDT Telemedicine [facility] [place] [address] Abida Gonzalez MD Elevated blood pressure reading in office with diagnosis of hypertension (Primary Dx); Hypogonadism in male; Class 2 severe obesity due to excess calories with serious comorbidity and body mass index (BMI) of 39.0 to 39.9 in adult ([facility]); Habitual snoring 09/14/2024 Travel 09/09/2024 Telephone [facility] [place] [address] Abida Gonzalez MD Referral 09/07/2024 Travel 08/06/[address] [address] Abida Gonzalez MD Results 08/06/2024 Orders Only [address] [place] [address] Abida Gonzalez MD Hypogonadism in male (Primary Dx) 08/03/2024 [address] [place] [address] NUTRITION APPT REQUEST 07/29/2024 9:45 AM EST Office Visit [facility] [place] [address] Abida Gonzalez MD Hypogonadism in male (Primary Dx); Encounter for preventive health examination; Class 2 severe obesity due to excess calories with serious comorbidity and body mass index (BMI) of 39.0 to 39.9 in adult ([facility]); Elevated blood pressure reading in office with diagnosis of hypertension; Screening and evaluation for vasectomy; Dietary counseling; Exercise counseling 07/29/2024 Travel 07/28/2024 Telephone [facility] [place] [address] Abida Gonzalez MD Chart prep 07/19/2024 Patient Outreach [address] [address] Abida Gonzalez MD Pre-visit Planning ((Unable to reach for PVP screening, LVM)) from Last 3 Months Immunizations Name Administration [...] Care Team (Late st Contact Info) Description 2024 2:30 PM EDT Office Visit [facility] [address], [place] [phone] Annette Haynes MD [address] [place] [address] Health Maintenance Due Date Last Done Comments Alcohol/Substance Use Screening 2002 Hepatitis B Vaccines (1 of 3 - 19+ 3-dose series) 2009 COVID-19 Vaccine ( - 2023-2 5 season) 2024 07/13/2021, 06/06/2021 [...] 10:32 AM EST) Syphilis Screen Nonreactive Nonreactive [facility] Blood 07/29/2024 10:3 2 AM EST 07/29/2024 11:12 AM EST Abida Gonzalez MD LAB BLOOD ORDERABLES Fin al Result [facility] [address] [place] [phone] * T-SPOT??.TB (07/29/2024 10:32 AM EST) T Spot TB Negative Negative [facility] Comment:A negative test resu lt does [...] as aquantitative test. TS PANEL A 3 [facility] TS PANEL B 0 [facility] Negative Control Passed [facility] Positive Control Passed [facility] Comment:For additional infor richie, please refer tohttp://education.Vaunte/faq/XUB361(This link is being provided for informational/educational purposes only.)THIS TEST WAS PERFORMED AT:[facility] [id number] [place] [id number] AMIN MD,PHD 07/29/2024 10:3 2 AM EST 07/29/2024 11:12 AM EST us Abida Gonzalez MD LAB BLOOD ORDERABLES Fin al Result [facility] [address] [place] [phone] * (ABNORMAL) Lipid Panel with Reflex to Direct LDL (07/29/2024 10:32 AM EST) Triglycerides 91 <150 mg/dL [facility] Comment:Desirable Triglyceri de: less than 150 mg/dLBorderline High Triglyceride 150-199 mg/dLHigh Triglyceride: 200-499 mg/dLVery High Triglyceride: greater than or equal to 5OO mg/dL Cholesterol 185 <200 mg/dL [facility] Comment:Desirable Cholestero l: less than 200 mg/dLBorderline High Cholesterol: 200-239 mg/dLHigh Cholesterol: greater than 239 mg/dL LDL Cholesterol Calculated 123(H) <100 mg/dL [facility] Comment:Desirable LDL: less than 100 mg/dLNear Optimal/Above Optimal LDL: 110- 129 mg/dLBorderline High LDL: 130-159 mg/dLHigh LDL: 160-189 mg/dLVery High LDL: greater than or equal to 190 mg/dL HDL Cholesterol 44 >40 mg/dL [facility] Comment:Desirable HDL: great er than 40 mg/dL Note: This HDL assay may give artificially low results in patients with liver disease. Blood 07/29/2024 10:3 2 AM EST 07/29/2024 11:12 AM EST us Lula Lisa MD LAB BLOOD ORDERABLES Fin al Result Performing Organization Address [facility] Co de Phone Number [facility] [address] [place] [phone] * Hepatitis Panel, General (07/29/2024 10:32 AM EST) Hepatitis A IgM Nonreactive Nonreactive [facility] Comment:IgM antibodies to DOE V not detected; does not exclude earlyacute or recovered HAV infection. ~Hepatitis B Surface Antibody GRAYZONE Nonreactive [facility] Comment:GRAYZONE: 8.00 mIU/m L TO 11.99 mIU/mLTHE IMMUNE STATUS OF THE INDIVIDUAL SHOULD BE FURTHERASSESSED BY CONSIDERING OTHER FACTORS, SUCH CLINICALSTATUS, FOLLOW-UP TESTING, ASSOCIATED RISK FACTORS, AND THEUSE OF ADDITIONAL DIAGNOSTIC INFORMATION. Hepatitis B Core Antibody Nonreactive Nonreactive [facility] Hepatitis C Antibody Nonreactive Nonreactive [facility] Comment:Antibodies to HCV no t detected; does not exclude early acuteHCV infection. Hepatitis B Surface Ag Negative Negative [facility] Blood 07/29/2024 10:3 2 AM EST 07/29/2024 11:12 AM EST Abida Gonzalez MD LAB BLOOD ORDERABLES Fin al Result Performing Organization Address [facility] de Phone Number [facility] [address] [place] [phone] * (ABNORMAL) CBC auto differential (07/29/2024 10:32 AM EST) White Blood Count 6.4 4.8 - 10.8 X10*3/uL [facility] Red Blood Count 5.18 4.60 - 5.80 X10*6/uL [facility] Hemoglobin 15.0 14.0 - 18.0 g/dl [facility] Hematocrit 44.6 42.0 - 52.0 % [facility] Mean Corpuscular Volume 86.1 80.0 - 98.0 fL [facility] Mean Corpuscular Hemoglobin 29.0 27.0 - 33.0 pg [facility] Mean Corpuscular HGB Conc 33.6 31.0 - 36.0 g/dl [facility] Red Cell Distribution Width 13.2 11.0 - 16.0 % [facility] Platelet Count 250 160 - 400 X10*3/uL [facility] Mean Platelet Volume 11.0 9.4 - 12.4 fL [facility] Neutrophils Percent Auto 54.4 45 - 73 % [facility] Imm Gran Pct Auto 0.3 0.0 - 0.4 % [facility] Lymphocytes Percent Auto 32.5 20 - 40 % [facility] Monocytes Percent Auto 6.4 2 - 11 % [facility] Eosinophils Percent Auto 5.3(H) 0 - 4 % [facility] Basophils Percent Auto 1.1 0 - 2 % [facility] NRBC Pct Auto 0.0 0.0 - 0.2 /100WBC [facility] Neutrophils Absolute Auto 3.5 2.0 - 8.3 x10*3/uL [facility] Imm Gran Abs Auto 0.02 0.00 - 0.03 X10*3/uL [facility] Lymphocytes Absolute Auto 2.1 1.2 - 4.9 X10*3/uL [facility] Monocytes Absolute Auto 0.4 0.1 - 1.2 X10*3/uL [facility] Eosinophils Absolute Auto 0.3 0.0 - 0.4 X10*3/uL [facility] Basophils Absolute Auto 0.1 0.0 - 0.2 X10*3/uL [facility] NRBC Abs Auto 0.000 0.0 - 0.012 X10*3/uL [facility] Blood Venous blood specimen / Unknown 07/29/2024 10:32 AM EST 07/29/2024 11:12 AM EST us Abida Gonzalez MD LAB BLOOD ORDERABLES Fin al Result [facility] [address] [place] [phone] * HIV-1/2 Antigen and Antibodies, Fourth Generation, with Reflexes (07/29/2024 10:32 AM EST) HIV AB/AG Nonreactive Nonreactive [facility] Comment:HIV-1 p24 Ag and/or HIV-1/HIV-2 Ab not detected.A test result that is nonreactive does not exclude thepossibility of exposure to or infection with HIV-1 and/orHIV-2. Nonreactive results in this assay for individualswith prior exposure to HIV-1 and/or HIV-2 may be due toantigen and antibody levels that are below the limit ofdetection of this assay.The Buddy HIV Ag/Ab Combo assay result andsupplemental assay results should be interpreted inconjunction with the patient's clinical presentation,history and other laboratory results. If the results areinconsistent with clinical evidence, additional testing issuggested to confirm the result. Blood Venous blood specimen / Unknown 07/29/2024 10:32 AM EST 07/29/2024 11:12 AM EST us Abida Gonzalez MD LAB BLOOD ORDERABLES Fin al Result [facility] [address] [place] [phone] * (ABNORMAL) Testosterone, Free (Dialysis) And Total, MS (07/29/2024 10:32 AM EST) Pathologist [facility] Testosterone, Total 189(A) 250 - 1100 ng/dL [facility] Comment:For additional infor mation, please refer tohttp://education.Vaunte/faq/[email or web address](This link is being provided for informational/educational purposes only.)This test was developed and its analytical performancecharacteristics have been determined by [facility], [place]. It hasnot been cleared or approved by the U.S. Food and DrugAdministration. This assay has been validated pursuantto the CLIA regulations and is used for clinicalpurposes. Testosterone, Free 34.2(A) 35.0 - 155.0 pg/mL [facility] Comment:This test was develo ped and its analytical performancecharacteristics have been determined by [facility] [facility], [place]. It hasnot been cleared or approved by the U.S. Food and DrugAdministration. This assay has been validated pursuantto the CLIA regulations and is used for clinicalpurposes.THIS TEST WAS PERFORMED AT:[facility] [place] [id number] AMIN MD,PHD Blood Venous blood specimen / Unknown 07/29/2024 10:32 AM EST 07/29/2024 11:12 AM EST Abida Gonzalez MD LAB BLOOD ORDERABLES Fin al Result Performing Organization Address City/[facility]/ZIP Co de Phone Number [facility] [address] [place] [address] [phone] * LH (07/29/2024 10:32 AM EST) Lutenizing Hormone 1.9 1.5 - 9.3 mIU/mL [facility] Comment:THIS TEST WAS PERFOR MED AT:[facility] [address] [id number] RICHARDS MD Blood Venous blood specimen / Unknown 07/29/2024 10:32 AM EST 07/29/2024 11:12 AM EST Abida Gonzalez MD LAB BLOOD ORDERABLES Fin al Result Performing Organization Address City/[facility]/ZIP Co de Phone Number [facility] [address] [place] [address] [phone] * FSH (07/29/2024 10:32 AM EST) Follicle Stimulating Hormone 3.8 1.4 - 12.8 mIU/mL [facility] Comment:THIS TEST WAS PERFOR MED AT:[employer] [place] [id number] RIHCARDS MD Blood Venous blood specimen / Unknown 07/29/2024 10:32 AM EST 07/29/2024 11:12 AM EST Abida Gonzalez MD LAB BLOOD ORDERABLES Fin al Result [facility] [address] [place] [phone] * (ABNORMAL) Comprehensive Metabolic Panel (07/29/2024 10:32 AM EST) Sodium 137 135 - 145 mmol/L [facility] Potassium 3.9 3.3 - 5.1 mmol/L [facility] Chloride 109(H) 96 - 108 mmol/L [facility] Carbon Dioxide 22 22 - 29 mmol/L [facility] Anion Gap 10(L) 12 - 20 [facility] Urea Nitrogen (BUN) 20(H) 9 - 16 mg/dL [facility] Creatinine, Serum 0.96 0.5 - 1.4 mg/dL [facility] Estimated Glomerular Filt Rate >60 [facility] Comment:Chronic Kidney Disea se: Estimated GFR < 60 mL/min/1.36l5Exbkxm Kidney Disease: Estimated GFR < 15 mL/min/1.73m2 Glucose 105 60 - 115 mg/dL [facility] Calcium 9.6 8.4 - 10.2 mg/dL [facility] Bilirubin, Total 0.8 0.0 - 1.0 mg/dL [facility] Aspartate Amino Transferase 20 5 - 37 U/L [facility] Alanine Aminotransferase 27 0 - 40 U/L [facility] Total Protein 8.5(H) 6.5 - 8.0 g/dL [facility] Albumin Level 4.1 3.5 - 5.0 g/dL [facility] Alkaline Phosphatase 95 39 - 117 U/L [facility] Blood Venous blood specimen / Unknown 07/29/2024 10:32 AM EST 07/29/2024 11:12 AM EST Abida Gonzalez MD LAB BLOOD ORDERABLES Fin al Result [facility] [address] [place] [address] [phone] from Last 3 Months Insurance [employer] Care Teams [employer] Demonstrator Relationship Specialty Start Date End Date Abida Gonzalez MD [address] [place] [phone] PCP - General Family Medicine 04/28/19
== END 2024-09-22 10:43 | disposition home or self-care (01) ==
LOC: HO.MRI 10:42
PROVIDERS: PCP Internal Medicine; Visit Provider Internal Medicine Endocrinology, Diabetes & Metabolism
DX: E23.0 Hypopituitarism (principal)
CPT/HCPCS: 70553; A9585

== ENCOUNTER → 2024-09-22 10:42 | Outpatient (BNV) | payer OTHER, SELFPAY | PROVIDERS: PCP Internal Medicine; Visit Provider Radiology Diagnostic Radiology | DX: J34.1 Cyst and mucocele of nose and nasal sinus (principal) | CPT/HCPCS: 70553 ==

== ENCOUNTER → 2024-10-18 14:01 | Outpatient (REF) | payer OTHER, SELFPAY ==
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
--- OUTSIDE RECORDS SUMMARY | 2024-10-18 16:48 | XMS_ITS | Clinical Summary ---
Author Organization [employer] Address [address] [place] [address] Care Team Providers Care Lute Packer Or Applier Name Role Phone Abida Gonzalez MD Primary [...] Active Problems Problem Noted Date Diagnosed Date Primary hypertension 09/23/2024 Habitual snoring 09/10/2024 Assessment & Plan (09/14/2024 [...] min/week of moderate intensity exercise. Refer to fisher mussel, will consider medications. Screening and evaluation for vasectomy Assessment & Plan (07/29/2024 2:37 PM EST): Patient never had vasectomy that he was referred to few years ago as he couldn't afford copayment. He will bring me information re specialist he would like to be referred to. 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 09/15/2024 Telephone [facility] [address] [place] [address] Abida Gonzalez MD 09/14/2024 12:00 PM EDT Telemedicine [facility] [address] [place] [phone] Abida Gonzalez MD Elevated blood pressure reading in office with diagnosis of hypertension (Primary Dx); Hypogonadism in male; Class 2 severe obesity due to excess calories with serious comorbidity and body mass index (BMI) of 39.0 to 39.9 in adult (CMS/[facility]); Habitual snoring 09/14/2024 Travel 09/09/2024 Telephone [facility] [address] [place] [phone] Abida Gonzalez MD Referral 09/07/2024 Travel 08/06/2024 Telephone [facility] [address] [place] [phone] Abida Gonzalez MD Results 08/06/2024 Orders Only [address] [address] Abida Gonzalez MD Hypogonadism in male (Primary Dx) 08/03/[address] NUTRITION APPT REQUEST 07/29/2024 9:45 AM EST Office Visit [facility] [address] [place] [phone] Abida Gonzalez MD Hypogonadism in male (Primary Dx); Encounter for preventive health examination; Class 2 severe obesity due to excess calories with serious comorbidity and body mass index (BMI) of 39.0 to 39.9 in adult (CMS/HCC); Elevated blood pressure reading in office with diagnosis of hypertension; Screening and evaluation for vasectomy; Dietary counseling; Exercise counseling 07/29/2024 Travel 07/28/2024 Telephone [facility] [address] [place], [place] [phone] Abida Gonzalez MD Chart prep from Last 3 Months Immunizations Name Administration [...] Care Team (Late st Contact Info) Description 11/08/2024 3:45 PM EDT Office Visit [facility] [address] [place] [address] Abida Gonzalez MD [address] [place] [address] Health Maintenance Due Date Last Done Comments [...] Procedure Name Priority Date/Time Associated Diagnosis Comments MR BRAIN W AND WO CONTRAST Routine 09/22/2024 10:57 AM EDT LH Routine 07/29/2024 10:32 AM EST Hypogonadism [...] examination from Last 3 Months Results * Mr Brain w/ and w/o Contrast (09/22/2024 10:57 AM EDT) Anatomical Region Laterality Modality Brain Magnetic Resonan ce 09/22/2024 10:5 7 AM EDT Narrative 09/23/2024 8:57 AM EDT ? [facility] ?[address] ?[place] [address] ? Magnetic Resonance Report ? Signed ? Patient: Daniel Cosme ?MR#: [id number] ? : 1990 ?Acct:[id number] ? Age/Sex: 33 / M ?ADM Date: 09/22/24 ? Loc: HO.MRI ? Attending Dr: Price Chaney MD ? Ordering Physician: Price Chaney MD ?? Date of Service: 09/22/24 ?? Procedure(s): MR head/brain wo/w con ?? Accession Number(s): [id number] ? cc: Abida Gonzalez MD; Price Chaney MD ? EXAMINATION: ?? MR BRAIN PITUITARY PROTOCOL WITHOUT AND WITH CONTRAST ? CLINICAL INFORMATION: ?? Hypopituitarism ? COMPARISON: ?? None available. ? TECHNIQUE: ?? Multiplanar, multisequence MRI of the brain /pituitary protocol was ?? obtained before and after the intravenous administration of 5 mL ?? Gadavist without reported immediate complications. ? FINDINGS: ?? The pituitary gland demonstrates normal morphology and enhancement ?? pattern with normal superior concavity. ?? The pituitary stalk is midline and measures less than 2 mm in maximal ?? thickness. ?? No enhancing lesion within the sellar suprasellar region. ?? The optic chiasm is intact and demonstrated normal signal. ?? Flow-void signal within the cavernous and supraclinoid segments of the ?? ICA is normal. The supraclinoid/terminus segment of the right ICA about ?? the underneath surface of the optic chiasm. ? No signal abnormality or enhancing lesion in the cavernous sinuses. ?? The midline structures are intact and normal. ?? No restricted diffusion. ?? No acute intracranial hemorrhage, mass effect, midline shift, ?? hydrocephalus or herniation. ?? Flow-void signal within the main cerebral vessels is normal. ?? Sung-white matter differentiation is normal. ?? There is a large volume, 3 cm retention cyst in the right maxillary ?? sinus. ?? There is no abnormal enhancement within the intra-axial or the ?? extra-axial compartment of the cranium based of the axial T1 ?? postcontrast sequence. ? MR/MR head/brain wo/w con ?? IMPRESSION: ?? Normal pituitary gland. ? Large-volume 3 cm retention cyst, right maxillary sinus. ? No enhancing mass. ?? Right ICA abutting the underneath surface of the right optic chiasm, ?? nonspecific.. ? Electronically signed by: ??Shon Duarte MD ??09/23/2024 08:54 AM ?? EDT ? Dictated By: ?Shon Antoine MD ? Signed By: ?<Electronically signed by Shon Mayen MD in OV> ? 09/23/24 0854 ? DD/ 1057 ? TD/TT: 09/22/24 1127 ? Moisture Tester: ? Procedure Note Khurram, Image - 09/23/[address] [address] Magnetic Resonance Report Signed Patient: Azeb Cosme#: [id number] : 1990Acct:[id number] Age/Sex: 33 / MADM Date: 09/22/24 Loc: HO.MRI Attending Dr: Price Chaney MD Ordering Physician: Price Chaney MD Date of Service: 09/22/24 Procedure(s): MR head/brain wo/w con Accession Number(s): [id number] cc: Abida Gonzalez MD; Price Chaney MD EXAMINATION: MR BRAIN PITUITARY PROTOCOL WITHOUT AND WITH CONTRAST CLINICAL INFORMATION: Hypopituitarism COMPARISON: None available. TECHNIQUE: Multiplanar, multisequence MRI of the brain /pituitary protocol was obtained before and after the intravenous administration of 5 mL Gadavist without reported immediate complications. FINDINGS: The pituitary gland demonstrates normal morphology and enhancement pattern with normal superior concavity. The pituitary stalk is midline and measures less than 2 mm in maximal thickness. No enhancing lesion within the sellar suprasellar region. The optic chiasm is intact and demonstrated normal signal. Flow-void signal within the cavernous and supraclinoid segments of the ICA is normal. The supraclinoid/terminus segment of the right ICA about the underneath surface of the optic chiasm. No signal abnormality or enhancing lesion in the cavernous sinuses. The midline structures are intact and normal. No restricted diffusion. No acute intracranial hemorrhage, mass effect, midline shift, hydrocephalus or herniation. Flow-void signal within the main cerebral vessels is normal. Sung-white matter differentiation is normal. There is a large volume, 3 cm retention cyst in the right maxillary sinus. There is no abnormal enhancement within the intra-axial or the extra-axial compartment of the cranium based of the axial T1 postcontrast sequence. MR/MR head/brain wo/w con IMPRESSION: Normal pituitary gland. Large-volume 3 cm retention cyst, right maxillary sinus. No enhancing mass. Right ICA abutting the underneath surface of the right optic chiasm, nonspecific.. Electronically signed by: Shon Duarte MD 09/23/2024 08:54 AM EDT Dictated By: Shon Antoine MD Signed By: <Electronically signed by Shon Mayen MDin OV> 09/23/24 0854 DD/ 1057 TD/TT: 09/22/24 1127 Moisture Tester: [facility] External Provider IMG MRI PROCEDURES Edited Result - Final * Syphilis Screen (07/29/2024 10:32 AM EST) Syphilis Screen Nonreactive Nonreactive [facility] Blood 07/29/2024 10:3 2 AM EST 07/29/2024 11:12 AM EST Abida Gonzalez MD LAB BLOOD ORDERABLES Fin al Result [facility] [address] [place] [phone] * T-SPOT??.TB (07/29/2024 10:32 AM EST) T Spot TB Negative Negative [facility] Comment:A negative test resu lt does [...] as aquantitative test. TS PANEL A 3 [facility] TS PANEL B 0 [facility] Negative Control Passed [facility] Positive Control Passed [facility] Comment:For additional infor mation, please refer tohttp://education.[employer]/faq/YWP922(This link is being provided for informational/educational purposes only.)THIS TEST WAS PERFORMED AT:[facility] [id number] [place] [id number] AMIN MD,PHD 07/29/2024 10:3 2 AM EST 07/29/2024 11:12 AM EST us Abida Gonzalez MD LAB BLOOD ORDERABLES Fin al Result Performing Organization Address [facility] Co de Phone Number [facility] [address] [place] [phone] * (ABNORMAL) Lipid Panel with Reflex to Direct LDL (07/29/2024 10:32 AM EST) Triglycerides 91 <150 mg/dL [facility] Comment:Desirable Triglyceri de: less than 150 mg/dLBorderline High Triglyceride 150-199 mg/dLHigh Triglyceride: 200-499 mg/dLVery High Triglyceride: greater than or equal to 5OO mg/dL Cholesterol 185 <200 mg/dL [facility] Comment:Desirable Cholestero l: less than 200 mg/dLBorderline High Cholesterol: 200-239 mg/dLHigh Cholesterol: greater than 239 mg/dL LDL Cholesterol Calculated 123(H) <100 mg/dL [facility] Comment:Desirable LDL: less than 100 mg/dLNear Optimal/Above Optimal LDL: 110- 129 mg/dLBorderline High LDL: 130-159 mg/dLHigh LDL: 160-189 mg/dLVery High LDL: greater than or equal to 190 mg/dL HDL Cholesterol 44 >40 mg/dL [facility] Comment:Desirable HDL: great er than 40 mg/dL Note: This HDL assay may give artificially low results in patients with liver disease. Blood 07/29/2024 10:3 2 AM EST 07/29/2024 11:12 AM EST us Abida Gonzalez MD LAB BLOOD ORDERABLES Fin al Result Performing Organization Address [facility] Co de Phone Number [facility] [address] [place] [address] [phone] * Hepatitis Panel, General (07/29/2024 10:32 AM EST) Hepatitis A IgM Nonreactive Nonreactive [facility] Comment:IgM antibodies to DOE V not detected; does not exclude earlyacute or recovered HAV infection. ~Hepatitis B Surface Antibody GRAYZONE Nonreactive [facility] Comment:GRAYZONE: 8.00 mIU/m L TO 11.99 mIU/mLTHE IMMUNE STATUS OF THE INDIVIDUAL SHOULD BE FURTHERASSESSED BY CONSIDERING OTHER FACTORS, SUCH CLINICALSTATUS, FOLLOW-UP TESTING, ASSOCIATED RISK FACTORS, AND THEUSE OF ADDITIONAL DIAGNOSTIC INFORMATION. Hepatitis B Core Antibody Nonreactive Nonreactive [facility] Hepatitis C Antibody Nonreactive Nonreactive [facility] Comment:Antibodies to HCV no t detected; does not exclude early acuteHCV infection. Hepatitis B Surface Ag Negative Negative [facility] Blood 07/29/2024 10:3 2 AM EST 07/29/2024 11:12 AM EST us Abida Gonzalez MD LAB BLOOD ORDERABLES Fin al Result [facility] [address] [place] [phone] * (ABNORMAL) CBC auto differential (07/29/2024 10:32 AM EST) White Blood Count 6.4 4.8 - 10.8 X10*3/uL [facility] Red Blood Count 5.18 4.60 - 5.80 X10*6/uL [facility] Hemoglobin 15.0 14.0 - 18.0 g/dl [facility] Hematocrit 44.6 42.0 - 52.0 % [facility] Mean Corpuscular Volume 86.1 80.0 - 98.0 fL [facility] Mean Corpuscular Hemoglobin 29.0 27.0 - 33.0 pg [facility] Mean Corpuscular HGB Conc 33.6 31.0 - 36.0 g/dl [facility] Red Cell Distribution Width 13.2 11.0 - 16.0 % [facility] Platelet Count 250 160 - 400 X10*3/uL [facility] Mean Platelet Volume 11.0 9.4 - 12.4 fL [facility] Neutrophils Percent Auto 54.4 45 - 73 % [facility] Imm Gran Pct Auto 0.3 0.0 - 0.4 % [facility] Lymphocytes Percent Auto 32.5 20 - 40 % [facility] Monocytes Percent Auto 6.4 2 - 11 % [facility] Eosinophils Percent Auto 5.3(H) 0 - 4 % [facility] Basophils Percent Auto 1.1 0 - 2 % [facility] NRBC Pct Auto 0.0 0.0 - 0.2 /100WBC [facility] Neutrophils Absolute Auto 3.5 2.0 - 8.3 x10*3/uL [facility] Imm Gran Abs Auto 0.02 0.00 - 0.03 X10*3/uL [facility] Lymphocytes Absolute Auto 2.1 1.2 - 4.9 X10*3/uL [facility] Monocytes Absolute Auto 0.4 0.1 - 1.2 X10*3/uL [facility] Eosinophils Absolute Auto 0.3 0.0 - 0.4 X10*3/uL [facility] Basophils Absolute Auto 0.1 0.0 - 0.2 X10*3/uL [facility] NRBC Abs Auto 0.000 0.0 - 0.012 X10*3/uL [facility] Blood Venous blood specimen / Unknown 07/29/2024 10:32 AM EST 07/29/2024 11:12 AM EST us Abida Gonzalez MD LAB BLOOD ORDERABLES Fin al Result [facility] [address], [place] [phone] * HIV-1/2 Antigen and Antibodies, Fourth [...] below the limit ofdetection of this assay.The GenomaticaniEnCoate HIV Ag/Ab Combo assay result andsupplemental assay results should be interpreted inconjunction with the patient's clinical presentation,history and other laboratory results. If the results areinconsistent with clinical evidence, additional testing issuggested to confirm the result. Blood Venous blood specimen / Unknown 07/29/2024 10:32 AM EST 07/29/2024 11:12 AM EST us Abida Gonzalez MD LAB BLOOD ORDERABLES Fin al Result [facility] [address] [place] [phone] * (ABNORMAL) Testosterone, Free (Dialysis) And Total, MS (07/29/2024 10:32 AM EST) Testosterone, Total 189(A) 250 - 1100 ng/dL [facility] Comment:For additional infor richie, please refer tohttp://education.[employer].[facility]/faq/NvumpGpooljdbavjrJQTMAEVCV212(This link is being provided for informational/educational purposes only.)This test was developed and its analytical performancecharacteristics have been determined by [facility] [place], [place]. It hasnot been cleared or approved by the U.S. Food and DrugAdministration. This assay has been validated pursuantto the CLIA regulations and is used for clinicalpurposes. Testosterone, Free 34.2(A) 35.0 - 155.0 pg/mL [facility] Comment:This test was develo ped and its analytical performancecharacteristics have been determined by [facility] [place], [place]. It hasnot been cleared or approved by the U.S. Food and DrugAdministration. This assay has been validated pursuantto the CLIA regulations and is used for clinicalpurposes.THIS TEST WAS PERFORMED AT:[id number] [place] [address]XXGAHBVXENA AMIN MD,PHD Blood Venous blood specimen / Unknown 07/29/2024 10:32 AM EST 07/29/2024 11:12 AM EST Abida Gonzalez MD LAB BLOOD ORDERABLES Fin al Result Performing Organization Address [facility] Co de Phone Number [facility] [address] [place] [address] [phone] * LH (07/29/2024 10:32 AM EST) Lutenizing Hormone 1.9 1.5 - 9.3 mIU/mL [facility] Comment:THIS TEST WAS PERFOR MED AT:[facility] [employer] [facility] [place] [id number] RICHARDS MD Blood Venous blood specimen / Unknown 07/29/2024 10:32 AM EST 07/29/2024 11:12 AM EST Abida Gonzalez MD LAB BLOOD ORDERABLES Fin al Result Performing Organization Address City/[facility] Co de Phone Number [facility] [address] [place] [address] [phone] * FSH (07/29/2024 10:32 AM EST) Follicle Stimulating Hormone 3.8 1.4 - 12.8 mIU/mL [facility] Comment:THIS TEST WAS PERFOR MED AT:[facility] [address] [phone] RICHARDS MD Blood Venous blood specimen / Unknown 07/29/2024 10:32 AM EST 07/29/2024 11:12 AM EST us Abida Gonzalez MD LAB BLOOD ORDERABLES Fin al Result Performing Organization Address City/[facility]/ZIP Co de Phone Number [facility] [address] [place] [address] [phone] * (ABNORMAL) Comprehensive Metabolic Panel (07/29/2024 10:32 AM EST) Sodium 137 135 - 145 mmol/L [facility] Potassium 3.9 3.3 - 5.1 mmol/L [facility] Chloride 109(H) 96 - 108 mmol/L [facility] Carbon Dioxide 22 22 - 29 mmol/L [facility] Anion Gap 10(L) 12 - 20 [facility] Urea Nitrogen (BUN) 20(H) 9 - 16 mg/dL [facility] Creatinine, Serum 0.96 0.5 - 1.4 mg/dL [facility] Estimated Glomerular Filt Rate >60 [facility] Comment:Chronic Kidney Disea se: Estimated GFR < 60 mL/min/1.55k2Qetgwt Kidney Disease: Estimated GFR < 15 mL/min/1.73m2 Glucose 105 60 - 115 mg/dL [facility] Calcium 9.6 8.4 - 10.2 mg/dL [facility] Bilirubin, Total 0.8 0.0 - 1.0 mg/dL [facility] Aspartate Amino Transferase 20 5 - 37 U/L [facility] Alanine Aminotransferase 27 0 - 40 U/L [facility] Total Protein 8.5(H) 6.5 - 8.0 g/dL [facility] Albumin Level 4.1 3.5 - 5.0 g/dL [facility] Alkaline Phosphatase 95 39 - 117 U/L [facility] Blood Venous blood specimen / Unknown 07/29/2024 10:32 AM EST 07/29/2024 11:12 AM EST us Abida Gonzalez MD LAB BLOOD ORDERABLES Fin al Result Performing Organization Address City/[facility]/ZIP Co de Phone Number [facility] [address] [place] [address] [phone] from Last 3 Months Insurance [employer] Care Teams Lute Packer Or Applier Relationship Specialty Start Date End Date Abida Gonzalez MD [address] [place] [phone] PCP - General Family Medicine 04/28/19
--- OUTSIDE RECORDS SUMMARY | 2024-10-18 16:49 | XMS_ITS | Clinical Summary ---
Author Organization [facility] Address [address] [place] [address] Care Team Providers Care Seed Tester Name Role Phone Unavailable Primary Care Provider [...] topic [employer] Other [address] [address] Daniel Cosme Personal/Family Self 1990 [address] [place] [address]
== END ==
LOC: HO.SL 14:01
PROVIDERS: PCP Internal Medicine; Visit Provider Internal Medicine
DX: R06.83 Snoring (principal); E66.9 Obesity, unspecified; I10 Essential (primary) hypertension
CPT/HCPCS: 95806

== ENCOUNTER → 2024-10-18 19:00 | Outpatient (BNV) | payer OTHER, SELFPAY | PROVIDERS: PCP Internal Medicine; Visit Provider Internal Medicine | DX: R06.83 Snoring (principal); G47.10 Hypersomnia, unspecified | CPT/HCPCS: 95806 ==

== ENCOUNTER 2024-11-02 11:25 | Outpatient (AMB) | payer OTHER, SELFPAY ==
[2024-11-02 11:26] VITALS: BP 120/88; PULSE 67; O2SAT 97; BMI 41.6
--- NOTE | 2024-11-02 11:26 | MHC.OFFVIS ---
Vital Signs 11/02/24 11:26 Height 5 ft 8 in Weight 273 lb 9.498 oz BMI 41.6 BP 120/88 Blood Pressure Location Lt brachial Position Sitting Pulse 67 Pulse Source Pulse Oximeter Pulse Oximetry (%) 97 Oxygen Delivery Method Room Air Intake Visit Reasons: Hypogonadism Intake Note: Patient present today for Hypogonadism follow up. Log Feeder Required: No Accompanied by: Spouse Allergies No Known Allergies Allergy (Verified 11/02/24 11:30) HPI Comments Details: 33 YO Male with who is seen in consultation at the request of his PCP for Hypogonadism. First diagnosed with Hypogonadism in 2021 with labs revealing low T. Saw online help. Took 100 mg once a wk.[place] better . Previously diagnosed in 2021, he reported fatigue, potentially exacerbated by night shifts. Initial treatment via [facility] consisted of weekly testosterone injections, 100 mg, resulting in symptom improvement. Cost led to therapy cessation approximately one year ago. Since stopping treatment, there has been weight gain, and a decrease in libido. He denies erectile dysfunction and testicular changes, and overall maintains intact sexual function. He experiences snoring but has not pursued sleep apnea evaluation. Was started on Testosterone supplementation with as above and found relief. Not Currently using testosterone. Last dose was last yr . achieving spontaneous am erections, and unable to achieve erection when desired. Reports low libido. Decreased facial hair and shaving frequency. Denies any change in size or shape of testicles. Denies penile discharge or scrotal tenderness. Denies any history of mumps orchitis. Denies any head trauma. Admits to snoring Denies history of ANAID. with children 4 children who were conceived spontaneously. Not looking to father children Sense of smell intact. Denies headache or visual changes, gynecomastia or galactorrhea. Denies orthostatic symptoms, weight loss. Denies change in size of hands or feet. Denies hair loss, weight gain, cold intolerance. History of DVT or PE: No use of anabolic steroids or heroin or opoids Labs: T=189 freeT =39.2 FSH =3.8 , LH =1.9 PSA CBC The patient is a 33-year-old male presenting with concerns regarding low testosterone levels. Approximately one year ago, he observed a decline in his physical fitness and overall energy subsequent to discontinuing testosterone therapy. Prior to cessation, he experienced marked improvements in his energy levels, libido, and general well-being. Post-discontinuation, he reports diminished libido, increased fatigue, and a central pattern of weight gain. Laboratory evaluations have demonstrated persistently low testosterone levels, recorded at 189 ng/dL and 220 ng/dL, with normal expected values at approximately 400 ng/dL for his age group. A recent pituitary MRI yielded normal findings, effectively ruling out central causes. Further, an incidentally noted 3 cm retention cyst within the maxillary sinus has been identified, although it requires no current intervention. A prior sleep study was negative for sleep apnea, noting only snoring, without significant sleep-disordered breathing events. - Tests: Sleep study negative for sleep apnea, noted snoring. - Imaging: Pituitary MRI normal; sinus MRI reveals 3 cm retention cyst in the maxillary sinus. - Labs: Testosterone level on 07/29 at 189 ng/dL; testosterone level on 09/09 at 220 ng/dL. [facility] Medical History (Updated 09/07/24 @ 10:05 by Price Chaney MD) Hypogonadotropic hypogonadism Surgical History (Updated 11/02/24 @ 11:31 by TASNEEM Styles) H/O left knee surgery Hx of shoulder surgery Hx of vasectomy Family History Mother History of partial hysterectomy Social History Alcohol intake: current Alcohol intake frequency: holidays/special occasions only Patient Tobacco Use Status: Never used Tobacco Physical Exam Vital Signs: Last Vital Signs Pulse 67 11/02/24 11:26 BP 120/88 11/02/24 11:26 Pulse Ox 97 11/02/24 11:26 Oxygen Delivery Method Room Air 11/02/24 11:26 BMI result Body Mass Index 41.6 Assessment & Plan Assessment & Plan (1) Hypogonadotropic hypogonadism: Code(s): E23.0 - Hypopituitarism Category: Medical Plan: Is a 33-year-old male with a history of hypogonadism with inappropriately low gonadotropins suggesting secondary hypogonadism. 1. Hypogonadism The patient?s symptoms and laboratory results are consistent with hypogonadism. I recommend testosterone replacement therapy, with an intramuscular injection of 100 mg testosterone weekly. I will monitor peak and trough levels to adjust the dose as needed and assess his hematocrit. 3. Retention cyst in maxillary sinus The sinus cyst is incidentally noted and does not require intervention at this time. The primary care physician will continue to monitor. During our visit, we discussed the diagnosis of hypogonadism and the reinitiation of testosterone replacement therapy. I explained the benefits of restoring testosterone levels, including improved energy and libido. I addressed potential risks, such as increased blood cell counts, and explained monitoring strategies through peak and trough levels. We also reviewed the incidental findings of the maxillary sinus retention cyst and confirmed that no action is necessary at present. The patient is informed of the monitoring protocol and agrees with the proposed plan. Follow-up visits and necessary blood work will ensure safety and efficacy of the treatment regimen. Potential adjustments will be based on symptom relief and laboratory findings. - Schedule an appointment for your testosterone injection prescription. - Return in six weeks for follow-up blood work. - Report any side effects from your testosterone therapy. - Follow up with your primary care physician regarding the sinus retention cyst. - Maintain a healthy diet and consider lifestyle changes to manage weight. - The patient had an opportunity to ask questions regarding treatment plan. The patient expressed understanding and agreement with the above treatment plan. T Patient was informed and verbally consented to the use of an ambient scribe for clinic note documentation during this visit. Orders: Orders Testosterone, Free/Total 6 Weeks E23.0 - Hypopituitarism Hemoglobin 6 Weeks E23.0 - Hypopituitarism Hematocrit 6 Weeks E23.0 - Hypopituitarism Testosterone, Free/Total 7 Weeks E23.0 - Hypopituitarism Coding Level of Care Code Est Pt Level 3 (56401) Diagnoses Hypogonadotropic hypogonadism E23.0
--- OUTSIDE RECORDS SUMMARY | 2024-11-02 12:54 | XMS_ITS | Clinical Summary ---
Author Organization [address] Address [address] [place] [address] Phone Care Team Providers Care Technology Lead Name Role Phone Abida Gonzalez MD Primary Care Provider + [phone] Allergies No known active allergies Medications cetirizine [...] mouth at bedtime. 30 tablet 5 Active aspirin 325 mg EC tablet Take 1 tablet (325 mg total) by mouth 1 (one) time each day for 21 days. To prevent Blood Clots, Take daily for 3 weeks 21 each 10/15/19 25 Active Problems Problem Noted Date Diagnosed Date Patellar tendon rupture, left, sequela BRBPR (bright red blood per rectum) 04/14/2024 Known medical problems 04/06/2024 Overview (04/06/2024): NO ACTIVE MEDICAL PROBLEMS(aka DZM325) Hypogonadism in male 04/08/2023 Overview (07/08/2024): Dx and treated by Dr Khurram Canela ([place]), only telehealth Elevated blood pressure read ing [...] 11:45 AM EDT Office Visit Orthopedic Surgery [facility] [address] [phone] Marcelo Sanders MD S/P knee surgery (Primary Dx) 09/29/2024 Telephone Orthopedic Surgery [facility] [address] [phone] Marcelo Sanders MD 09/24/2024 Telephone Orthopedic Surgery [facility] [address] [phone] Marcelo Sanders MD PO question 09/23/2024 1:44 PM EDT Anesthesia Event [facility] Main OR [address] [place] [phone] Julian Chavez MD [place], [place] [facility] 09/23/2024 1:00 PM EDT - 09/23/2024 4:00 PM EDT Surgery [facility] Main OR [address] [place] [phone] Marcelo Sanders MD REPAIR LIGAMENT OR TENDON KNEE - L [99219 (CPT??) +2 more] 09/23/2024 11:31 AM EDT - 09/23/2024 6:26 PM EDT Hospital Encounter [facility] Main OR [address] [place] [phone] Marcelo Sanders MD Discharge Disposition: Home or Self Care 09/09/2024 Telephone Orthopedic Surgery [facility] [address] [phone] Marcelo Sanders MD 09/09/2024 [place] [facility] [address] [phone] Janet Viveros MA Post-op PT Order 08/24/2024 [place] Orthopedic [facility] [address] [phone] Nicole Ly MA Surgery 08/24/2024 Telephone Orthopedic Surgery [facility] [address] [phone] Marcelo Sanders MD 08/09/2024 9:00 AM EST Consult Orthopedic Surgery [facility] [address] [phone] Marcelo Sanders MD Patellar tendon rupture, left, [...] 11:00 AM EDT Office Visit [facility] - [place] [address] 175 [facility] [address] [place] [phone] Fay Harding PA 175 [facility] [address] [place] [address] Health Maintenance Due Date Last Done Comments [...] this topic Medical Devices Implanted Type Area Door Attendant Device Identifier Shelf Expiration Date Model / Serial / Lot Suture Ultratape Cobraid Bl Lo Prof Non Absorb - Sn/A - [id number] Implanted:Qty: 1 on 09/23/2024 by Marcelo Sanders MD at [facility] Arthroscopy Implants Sports Med Left: Knee [employer]HEW - ENDOSCOPY [id number] 02/28/2028 [id number] / N/A / [id number] Procedures Procedure Name Priority Date/Time Associated Diagnosis Comments XR KNEE 1-2 VIEWS LEFT Routine 10/11/2024 11:38 AM EDT Post-operative state TH AN LMA(NO CHARGE) Routine 09/23/2024 2:01 PM EDT VT ARTHROSCOPY KNEE SURGICAL SYNOVECTOMY LIMITED (SEPARATE PROCEDURE) 09/23/2024 1:47 PM EDT Patellar tendon rupture, left, sequela Case Notes Arthroscopy first, then open, large radiolucent triangle, 2 techs Special Needs Arthroscopy first, then open. Open knee equipment, Retractors, large radiolucent triangle VT SUTURE OF INFRAPATELLAR TENDON PRIMARY 09/23/2024 1:47 PM EDT Patellar tendon rupture, left, sequela Case Notes Arthroscopy first, then open, large radiolucent triangle, 2 techs Special Needs Arthroscopy first, then open. Open knee equipment, Retractors, large radiolucent triangle VT SUTURE INFRAPATELLAR TENDON SEC RECONSTRUCTION INCL FASCIAL/TENDON GRAFT 09/23/2024 1:47 PM EDT Patellar tendon rupture, left, sequela Case Notes Arthroscopy first, then open, large radiolucent triangle, 2 techs Special Needs Arthroscopy first, then open. Open knee equipment, Retractors, large radiolucent triangle TH AN NERVE BLOCK ADDUCTOR CANAL (NO CHARGE) Routine 09/23/2024 1:20 PM EDT AN NERVE BLOCK ADDUCTOR CANAL (CHARGE) Routine [...] ANESTHETIC SOLUTION FOR POSTOP PAIN MANAGEMENT Result [facility] Julian Chavez MD ANESTHESIA ORDERABLES Final Re sult * Annual BMP Blood Test (02/22/2014) [facility] Annual BMP Blood Test abstracted Result [facility] Becky JAUREGUI HEALTH MAINTENANCE Final Result * Lipid panel (02/22/2014) [facility] LDL/HDL Ratio 3 0 - 4 Triglycerides 95 0 - 150 mg/dL Cholesterol 153 0 - 200 mg/dL HDL 44 >=40 mg/dL LDL Cholesterol 90 0 - 100 mg/dL Blood Venous blood specimen / Unknown Result [facility] Becky JAUREGUI LAB BLOOD ORDERABLES Martine l Result * HIV Screening (02/18/2013) [facility] HIV Screening abstracted Result [facility] Becky JAUREGUI HEALTH MAINTENANCE Final Result * Hepatitis C Screening (02/18/2013) [facility] Hepatitis C Screening abstracted Result [facility] Becky JAUREGUI HEALTH MAINTENANCE Final Result from Last 3 Months or Most Recently Relevant to Health Maintenance Insurance [employer] Care Teams Technology Lead Relationship Specialty Start Date End Date Abida Gonzalez MD [address] [place] [phone] PCP - General Internal Medicine 05/24/24
--- OUTSIDE RECORDS SUMMARY | 2024-11-02 12:54 | XMS_ITS | Clinical Summary ---
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
--- OUTSIDE RECORDS SUMMARY | 2024-11-02 12:54 | XMS_ITS | Clinical Summary ---
Author Organization [employer] Address [address] [place] [address] Care Team Providers Care Manager Environmental Health And Safety Name Role Phone Abida Gonzalez MD Primary [...] min/week of moderate intensity exercise. 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 Screening and evaluation for vasectomy Assessment & Plan (07/29/2024 2:37 PM EST): Patient never had vasectomy that he was referred to few years ago as he couldn't afford copayment. He will bring me information re specialist he would like to be referred to. Hypogonadism in male 04/08/2023 Overview (04/08/2023): Dx and treated by Dr Khurram Canela ([place]), only telehealth Assessment & Plan (09/14/2024 1:06 [...] is a neuro [place] out of [place] Check testosterone levels Elevated blood pressure read [...] exam pt will make jamarcus at his doctor of medicine Lipids/FBS, labs to be ordered Vaccinations, agreed [...] Type Department Care Team Description 09/24/2024 Telephone [facility] [address] [place] [address] Abida Gonzalez MD Results 09/23/2024 Orders Only [facility] [address] [place] [address] Abida Gonzalez MD Primary hypertension (Primary Dx) 09/22/2024 Orders Only [facility] External Provider, [facility] 09/15/2024 Telephone [facility] [address] [place] [address] Abida Gonzalez MD 09/14/2024 12:00 PM EDT Telemedicine [facility] [address] [place] [address] Abida Gonzalez MD Elevated blood pressure reading in office with diagnosis of hypertension (Primary Dx); Hypogonadism in male; Class 2 severe obesity due to excess calories with serious comorbidity and body mass index (BMI) of 39.0 to 39.9 in adult (CMS/[facility]LY [facility]); Habitual snoring 09/14/2024 Travel 09/09/2024 Telephone [facility] [address] [place] [address] Abida Gonzalez MD Referral 09/07/2024 Travel 08/06/2024 Telephone [facility] [address] [place] [phone] Abida Gonzalez MD Results 08/06/2024 Orders Only [facility] [address] [place] [phone] Abida Gonzalez MD Hypogonadism in male (Primary Dx) from Last 3 Months Immunizations [...] Description 11/08/2024 3:45 PM EDT Office Visit [facility] [address] [place] [address] Abida Gonzalez MD [address] [place] [address] 12/31/2024 9:45 AM EDT Office Visit [facility] [address] [place], [place] [phone] Concepción Camilo, OD [address] [place], [place] [phone] Health Maintenance Due Date Last Done Comments [...] Procedure Name Priority Date/Time Associated Diagnosis Comments POLYSOMNOGRAM Routine 10/18/2024 Habitual snoring Elevated blood pressure reading in office with diagnosis of hypertension Obesity (BMI 30-39.9) MR BRAIN W AND WO CONTRAST Routine 09/22/2024 10:57 AM EDT HEPATITIS PANEL, GENERAL Routine 07/29/2024 10:32 AM EST Encounter for preventive health examination HIV 1/2 ANTIGEN/ANTIBODY, FOURTH GENERATION W/RFL Routine 07/29/2024 10:32 AM EST Encounter for preventive health examination LIPID PANEL WITH REFLEX TO DIRECT LDL Routine 07/29/2024 10:32 AM EST Hypogonadism in male from Last 3 Months or Most Recently Relevant to Health Maintenance Results * Polysomnography (10/18/2024) us Abida Gonzalez MD [facility] ORDERABLES Final Result * Mr Brain w/ and w/o Contrast (09/22/2024 10:57 AM EDT) Anatomical Region Laterality Modality Brain Magnetic Resonan ce 09/22/2024 10:5 7 AM EDT Narrative 09/23/2024 8:57 AM EDT ? [facility] ?[address] ?[place] [address] ? Magnetic Resonance Report ? Signed ? Patient: Cosme,Daniel ?MR#: [id number] ? : 1990 ?Acct:[id number] ? Age/Sex: 33 / M ?ADM Date: 09/22/24 ? Loc: HO.MRI ? Attending Dr: Price Chaney MD ? Ordering Physician: Price Chaney MD ?? Date of Service: 09/22/24 ?? Procedure(s): MR head/brain wo/w con ?? Accession Number(s): [id number] ? cc: Abida Gonzalez MD; Price Chaney [...] Duarte MD ??09/23/2024 08:54 AM ?? EDT RP ? Dictated By: ?Shon Antoine MD ? Signed By: ?<Electronically signed by Shon Mayen MD in OV> ? 09/23/24 0854 ? DD/ ? TD/TT: 09/22/24 1127 ? Stopping Builder: ? Procedure Note Donotuseinterpreter, Image - 09/23/[address] [address] Magnetic Resonance Report Signed Patient: Azeb Cosme#: [id number] : 1990Acct:[id number] Age/Sex: 33 / MADM Date: 09/22/24 Loc: HO.MRI Attending Dr: Price Chaney MD Ordering Physician: Price Chaney MD Date of Service: 09/22/24 Procedure(s): MR head/brain wo/w con Accession Number(s): [id number] cc: Abida Gonzalez MD; Price Chaney MD [...] 09/23/24 0854 DD/ 1057 TD/TT: 09/22/24 1127 Stopping Builder: [facility] External Provider IMG MRI PROCEDURES Edited Result - Final * (ABNORMAL) Lipid Panel with Reflex to Direct LDL (07/29/2024 10:32 AM EST) Triglycerides 91 <150 mg/dL [facility] Comment:Desirable Triglyceri de: less than 150 mg/dLBorderline High Triglyceride 150-199 mg/dLHigh Triglyceride: 200-499 mg/dLVery High Triglyceride: greater than or equal to 5OO mg/dL Cholesterol 185 <200 mg/dL [facility] Comment:Desirable Cholestero l: less than 200 mg/dLBorderline High Cholesterol: 200-239 mg/dLHigh Cholesterol: greater than 239 mg/dL LDL Cholesterol Calculated 123(H) <100 mg/dL [facility] Comment:Desirable LDL: less than 100 mg/dLNear Optimal/Above Optimal LDL: 110- 129 mg/dLBorderline High LDL: 130-159 mg/dLHigh LDL: 160-189 mg/dLVery High LDL: greater than or equal to 190 mg/dL HDL Cholesterol 44 >40 mg/dL [facility] Comment:Desirable HDL: great er than 40 mg/dL Note: This HDL assay may give artificially low results in patients with liver disease. Blood 07/29/2024 10:3 2 AM EST 07/29/2024 11:12 AM EST us Abida Gonzalez MD LAB BLOOD ORDERABLES Fin al Result Performing Organization Address [facility] de Phone Number [facility] [address] [place] [phone] * Hepatitis Panel, General (07/29/2024 10:32 AM EST) Hepatitis A IgM Nonreactive Nonreactive [facility] Comment:IgM antibodies to DOE V not detected; does not exclude earlyacute or recovered HAV infection. ~Hepatitis B Surface Antibody GRAYZONE Nonreactive [facility] Comment:GRAYZONE: 8.00 mIU/m L TO 11.99 mIU/mLTHE IMMUNE STATUS OF THE INDIVIDUAL SHOULD BE FURTHERASSESSED BY CONSIDERING OTHER FACTORS, SUCH CLINICALSTATUS, FOLLOW-UP TESTING, ASSOCIATED RISK FACTORS, AND THEUSE OF ADDITIONAL DIAGNOSTIC INFORMATION. Hepatitis B Core Antibody Nonreactive Nonreactive [facility] Hepatitis C Antibody Nonreactive Nonreactive [facility] Comment:Antibodies to HCV no t detected; does not exclude early acuteHCV infection. Hepatitis B Surface Ag Negative Negative [facility] Blood 07/29/2024 10:3 2 AM EST 07/29/2024 11:12 AM EST Abida Gonzalez MD LAB BLOOD ORDERABLES Fin al Result Performing Organization Address [facility] de Phone Number [facility] [address] [place] [phone] * HIV-1/2 Antigen and Antibodies, Fourth Generation, with Reflexes (07/29/2024 10:32 AM EST) HIV AB/AG Nonreactive Nonreactive [facility] Comment:HIV-1 p24 Ag and/or HIV-1/HIV-2 Ab not detected.A test result that is nonreactive does not exclude thepossibility of exposure to or infection with HIV-1 and/orHIV-2. Nonreactive results in this assay for individualswith prior exposure to HIV-1 and/or HIV-2 may be due toantigen and antibody levels that are below the limit ofdetection of this assay.[employer] Al[employer] HIV Ag/Ab Combo assay result andsupplemental assay results should be interpreted inconjunction with the patient's clinical presentation,history and other laboratory results. If the results areinconsistent with clinical evidence, additional testing issuggested to confirm the result. Blood Venous blood specimen / Unknown 07/29/2024 10:32 AM EST 07/29/2024 11:12 AM EST us Abida Gonzalez MD LAB BLOOD ORDERABLES Fin al Result [facility] [address] [place] [phone] from Last 3 Months or Most Recently Relevant to Health Maintenance Insurance [place] [address] Care Teams Manager Environmental Health And Safety Relationship Specialty Start Date End Date Abida Gonzalez MD [address] [place] [address] PCP - General Family Medicine 04/28/19
== END 2024-11-02 11:45 | disposition home or self-care (01) ==
LOC: HO.ENCR 11:25
PROVIDERS: PCP Internal Medicine; Visit Provider Internal Medicine Endocrinology, Diabetes & Metabolism
DX: E23.0 Hypopituitarism (principal)
CPT/HCPCS: 99213

== ENCOUNTER 2025-03-11 08:19 | Outpatient (REF) | payer OTHER, SELFPAY ==
--- OUTSIDE RECORDS SUMMARY | 2025-03-11 08:49 | XMS_ITS | Clinical Summary ---
Author Organization [address] Address [address] [place] [address] Phone Care Team Providers Care Technical Editor Name Role Phone Abida Gonzalez MD Primary Care Provider + [phone] Allergies No known active allergies Medications cetirizine [...] times a day. 60 tablet 5 Active oxyCODONE (ROXICODONE) 5 mg immediate release tablet Take 1 tablet (5 mg total) by mouth every 4 (four) hours if needed for severe pain. Max Daily Amount: 30 mg 25 tablet 5 Active Additional Information Patient not taking.Reported on 01/24/2025 senna-docusate (PERICOLACE) 8.6-50 mg per tablet Take 2 tablets by mouth at bedtime. 30 tablet 5 Active Additional Information Patient not taking.Reported on 01/24/2025 cefadroxil 500 mg capsule Take 1 capsule (500 mg total) by mouth 2 (two) times a day. 14 capsule 5 Active Active Problems Problem Noted Date Diagnosed Date S/P tendon repair 11/24/2024 Patellar tendon rupture, left, sequela 5 BRBPR (bright red blood per rectum) 04/14/2024 Known medical problems 04/06/2024 Overview (04/06/2024): NO ACTIVE MEDICAL PROBLEMS(aka BSA151) Hypogonadism in male 04/08/2023 Overview (07/08/2024): Dx and treated by Dr Khurram Canela ([place] and [place]), only telehealth Elevated blood pressure read ing in office with diagnosis of hypertension 04/08/2023 Class 2 obesity 11/06/2022 Resolved Problems Problem Noted Date Diagnosed Date Resolved Date Subareolar mass of right breast 11/06/2022 07/08/2024 Right upper quadrant pain 11/06/2022 Pleuritic pain 11/06/2022 07/08/2024 Injury of right foot 11/06/2022 025 Encounters Date Type Department Care Team Description 02/15/2025 Telephone Orthopedic Surgery [facility] [address] [phone] Marcelo Sanders MD 01/24/2025 10:30 AM EDT Office Visit Orthopedic Surgery [facility] [address] [phone] Fay Harding PA Post-operative state (Primary Dx); S/P tendon repair; Patellar tendon rupture, left, sequela from Last 3 Months Immunizations Name Administration [...] 74 09/23/2024 4:28 PM EDT Temperature 36.5 C (97.7 F) 09/23/2024 4:28 PM EDT Respiratory Rate 14 09/23/2024 4:28 PM EDT Oxygen Saturation 98% 09/23/2024 4:28 PM EDT Inhaled Oxygen Concentration - - Weight 118 kg (260 lb) 09/21/2024 11:00 AM EDT Height 172.7 cm (5' 8 ) 09/21/2024 11:00 AM EDT Body Mass Index 39.53 09/21/2024 11:00 AM EDT Plan of Treatment Upcoming Encounters Date Type Department Care Team (Late st Contact Info) Description 03/23/2025 9:30 AM EDT Office Visit Orthopedic Surgery - [place] [address] [facility] [address] [place] [address] Marcelo Sanders MD [facility] [place] [address] Health Maintenance Due Date Last Done Comments Hepatitis B Vaccines (1 of 3 - 19+ 3-dose series) 2009 Social Influencers of Health Screening 05/26/2022 Depression Screening 06/23/2024 COVID-19 Vaccine (3 - 2024-2 6 season) 2025 07/13/2021, 06/06/2021 Influenza Vaccine (#1) 2025 04/05/2020 Cholesterol Screening (Lipid Panel) 04/10/2025 04/10/2020, 02/22/2014 Hypertension/CHF/CAD Annual BMP Blood Test 07/29/2025 07/29/2024, 02/22/2014 DTaP,Tdap,and Td Vaccines (4 - Td or Tdap) 04/08/2033 04/08/2023, 02/17/2017, 02/18/2013 RSV Immunization Adult Patients (1 - 1-dose 75+ series) 2065 Hepatitis C Screening Completed 02/18/2013 HIV Screening [...] 5 Years) and At-Risk Patients (6 to 49 Years) Aged Out No longer eligible b ased on patient's age to complete this topic RSV Immunization Patients Under 20 months Aged Out No longer eligible b ased on patient's age to complete this topic Varicella Vaccines Aged Out No longer eligible based on patient's age to complete this topic Medical Devices Implanted Type Area [employer] Middleware Developer Device Identifier Shelf Expiration Date Model / Serial / Lot Suture Ultratape Cobraid Bl Lo Prof Non Absorb - Sn/A - [id number] Implanted:Qty: 1 on 09/23/2024 by Marcelo Sanders MD at [facility] [employer]plants Sports Med Left: Knee [employer] - ENDOSCOPY [id number] 02/28/2028 [id number] / N/A / [id number] Procedures Procedure Name Priority Date/Time Associated Diagnosis Comments ANNUAL BMP BLOOD TEST Routine 02/22/2014 LIPID PANEL Routine 02/22/2014 HEPATITIS C SCREENING Routine 02/18/2013 HIV SCREENING Routine 02/18/2013 from Last 3 Months or Most Recently Relevant to Health Maintenance Results * Annual BMP Blood Test (02/22/2014) [facility] Annual BMP Blood Test abstracted [facility] Provider HEALTH MAINTENANCE Final Result * Lipid panel (02/22/2014) [facility] [address] [facility] LDL/HDL Ratio 3 0 - 4 Triglycerides 95 0 - 150 mg/dL Cholesterol 153 0 - 200 mg/dL HDL 44 >=40 mg/dL LDL Cholesterol 90 0 - 100 mg/dL Blood Venous blood specimen / Unknown Historical Provider LAB BLOOD ORDERABLES Martine l Result * HIV Screening (02/18/2013) [facility] [address] HIV Screening abstracted [facility] Provider HEALTH MAINTENANCE Final Result * Hepatitis C Screening (02/18/2013) [facility] Hepatitis C Screening abstracted [facility] Provider HEALTH MAINTENANCE Final Result from Last 3 Months or Most Recently Relevant to Health Maintenance Insurance [employer] Care Teams Technical Editor Relationship Specialty Start Date End Date Abida Gonzalez MD [address] [place] [phone] PCP - General Internal Medicine 05/24/24
--- OUTSIDE RECORDS SUMMARY | 2025-03-11 08:49 | XMS_ITS | Clinical Summary ---
Author Organization [employer] Address [address] [place] [address] Care Team Providers Care Operations Research Director Name Role Phone Abida Gonzalez MD Primary [...] min/week of moderate intensity exercise. Refer to lime mixer, will consider medications. Screening and evaluation for vasectomy Assessment & Plan (07/29/2024 2:37 PM EST): Patient never had vasectomy that he was referred to few years ago as he couldn't afford copayment. He will bring me information re specialist he would like to be referred to. 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 Lipids/FBS, labs to be ordered [...] Obesity (BMI 30-39.9) 11/06/2022 Pleuritic pain 11/06/2022 Immunizations Immunization Administration Dates Next Due Influenza injectable quadrivalent [...] the past 12 months, has t he [employer], gas, oil or water [employer] threatened to shut off services in your [...] 73 07/29/2024 9:54 AM EST Temperature 36.7 C (98.1 F) 07/29/2024 9:54 AM EST Respiratory Rate 16 07/29/2024 9:54 AM EST Oxygen Saturation 99% 07/29/2024 9:54 AM EST Inhaled Oxygen Concentration - - Weight 119 kg (262 lb) 07/29/2024 9:54 AM EST Height 172.7 cm (5' 8 ) 07/29/2024 9:54 AM EST Body Mass Index 39.84 07/29/2024 9:54 AM EST Plan of Treatment Health Maintenance Due Date Last Done Comments Alcohol/Substance Use Screening 2002 HPV Vaccines (1 - Male 3-dos e series) 2005 Hepatitis B Vaccines (1 of 3 - 19+ 3-dose series) 2009 COVID-19 Vaccine (3 - 2024-2 6 season) 2025 07/13/2021, 06/06/2021 Influenza Vaccine (#1) 2025 04/05/2020 Depression Screening 07/29/2025 07/29/2024, 04/08/2023 Family Planning (PISQ) 07/29/2025 07/29/2024 SDOH Screening 07/29/2025 07/29/2024 Tobacco Screening 07/29/2025 07/29/2024 Disability Screening 09/07/2025 09/07/2024 Lipid Panel 07/29/2029 07/29/2024, 04/10/2020 DTaP/Tdap/Td Vaccines [...] Years) and At-Risk Patients (6 to 49) Years Aged Out No longer eligible b ased on patient's age to complete this topic RSV under 20 months Aged Out No longe r eligible based on patient's age to complete this topic Rotavirus Vaccines Aged Out No longer eligible based on patient's age to complete this topic Procedures Procedure Name Priority Date/Time Associated Diagnosis Comments HEPATITIS PANEL, GENERAL Routine 07/29/2024 10:32 AM EST Encounter for preventive health examination HIV 1/2 ANTIGEN/ANTIBODY, FOURTH GENERATION W/RFL Routine 07/29/2024 10:32 AM EST Encounter for preventive health examination LIPID PANEL WITH REFLEX TO DIRECT LDL Routine 07/29/2024 10:32 AM EST Hypogonadism in male from Last 3 Months or Most Recently Relevant to Health Maintenance Results * (ABNORMAL) Lipid Panel with Reflex to Direct LDL (07/29/2024 10:32 AM EST) Triglycerides 91 <150 mg/dL [facility] Comment:Desirable Triglyceri de: less than 150 mg/dLBorderline High Triglyceride 150-199 mg/dLHigh Triglyceride: 200-499 mg/dLVery High Triglyceride: greater than or equal to 5OO mg/dL Cholesterol 185 <200 mg/dL [facility] Comment:Desirable Cholestero l: less than 200 mg/dLBorderline High Cholesterol: 200-239 mg/dLHigh Cholesterol: greater than 239 mg/dL LDL Cholesterol Calculated 123(H) <100 mg/dL [facility] Comment:Desirable LDL: less than 100 mg/dLNear Optimal/Above Optimal LDL: 110- 129 mg/dLBorderline High LDL: 130-159 mg/dLHigh LDL: 160-189 mg/dLVery High LDL: greater than or equal to 190 mg/dL HDL Cholesterol 44 >40 mg/dL [facility] Comment:Desirable HDL: great er than 40 mg/dL Note: This HDL assay may give artificially low results in patients with liver disease. Blood 07/29/2024 10:3 2 AM EST 07/29/2024 11:12 AM EST Abida Gonzalez MD LAB BLOOD ORDERABLES Fin al Result Performing Organization Address [facility]/ZIP Co de Phone Number [facility] [address] [place] [phone] * Hepatitis Panel, General (07/29/2024 10:32 AM EST) Hepatitis A IgM Nonreactive Nonreactive [facility] Comment:IgM antibodies to DOE V not detected; does not exclude earlyacute or recovered HAV infection. ~Hepatitis B Surface Antibody GRAYZONE Nonreactive [facility] Comment:GRAYZONE: 8.00 mIU/m L TO 11.99 mIU/mLTHE IMMUNE STATUS OF THE INDIVIDUAL SHOULD BE FURTHERASSESSED BY CONSIDERING OTHER FACTORS, SUCH CLINICALSTATUS, FOLLOW-UP TESTING, ASSOCIATED RISK FACTORS, AND THEUSE OF ADDITIONAL DIAGNOSTIC INFORMATION. Hepatitis B Core Antibody Nonreactive Nonreactive [facility] Hepatitis C Antibody Nonreactive Nonreactive [facility] Comment:Antibodies to HCV no t detected; does not exclude early acuteHCV infection. Hepatitis B Surface Ag Negative Negative [facility] Blood 07/29/2024 10:3 2 AM EST 07/29/2024 11:12 AM EST us Abida Gonzalez MD LAB BLOOD ORDERABLES Fin al Result Performing Organization Address [facility] Co de Phone Number [facility] [address] [place] [phone] * HIV-1/2 Antigen and Antibodies, Fourth Generation, with Reflexes (07/29/2024 10:32 AM EST) HIV AB/AG Nonreactive Nonreactive [facility] Comment:HIV-1 p24 Ag and/or HIV-1/HIV-2 Ab not detected.A test result that is nonreactive does not exclude thepossibility of exposure to or infection with HIV-1 and/orHIV-2. Nonreactive results in this assay for individualswith prior exposure to HIV-1 and/or HIV-2 may be due toantigen and antibody levels that are below the limit ofdetection of this assay.The [employer] HIV Ag/Ab Combo assay result andsupplemental assay results should be interpreted inconjunction with the patient's clinical presentation,history and other laboratory results. If the results areinconsistent with clinical evidence, additional testing issuggested to confirm the result. Blood Venous blood specimen / Unknown 07/29/2024 10:32 AM EST 07/29/2024 11:12 AM EST Abida Gonzalez MD LAB BLOOD ORDERABLES Fin al Result Performing Organization Address City/State/[facility] Co de Phone Number [facility] [address] [place] [phone] from Last 3 Months or Most Recently Relevant to Health Maintenance Insurance [address] [place], [place] [address]ARE Care Teams Operations Research Director Relationship Specialty Start Date End Date Abida Gonzalez MD [address] [place] [phone] PCP - General Family Medicine 04/28/19
--- OUTSIDE RECORDS SUMMARY | 2025-03-11 08:49 | XMS_ITS ---
Author Name [facility] Organization Unknown Encounters Encounter Type Encounter Reason Primary Diagnosis Location Date Ambulatory [facility] 11/04/2022
--- OUTSIDE RECORDS SUMMARY | 2025-03-11 08:49 | XMS_ITS | Clinical Summary ---
Author Organization [facility] Address [address] [phone] Care Team Providers Care Private Branch Exchange Operator Name Role Phone Unavailable Primary Care Provider [...] (1 - Tdap) 2009 Influenza Vaccine (#1) 2025 Pneumococcal Vaccine Aged Out No long er eligible based on patient's age to complete this topic RSV Ped < 20 months Aged Out No longe r eligible based on patient's age to complete this topic [employer] Other [address] [phone] Daniel Cosme Personal/Family Self 1990 [address] [place] [address]
== END 2025-03-11 08:20 | disposition home or self-care (01) ==
LOC: HO.10HDL 08:19
PROVIDERS: Visit Provider Internal Medicine Endocrinology, Diabetes & Metabolism
DX: E23.0 Hypopituitarism (principal)
CPT/HCPCS: 36415; 84402; 84403